=== PATIENT | female | born 1980 | race Caucasian/White ===

== ENCOUNTER 2020-06-18 17:02 | Emergency (ER) | payer OTHER ==
[~2020-06-18] VITALS: Ht 180.3 cm; Wt 136.1 kg
--- OUTSIDE RECORDS SUMMARY | 2020-06-18 18:33 | XMS REPORT | Clinical Summary ---
Author Author [facility] Organization [facility] Address Unknown Phone Unavailable Care Team Providers Care Lather Apprentice Name Role Phone Ra Wilson MD PCP [phone] Allergies Not on File Medications End Date Status Medication Sig Dispensed Refills Start Date Active traZODone (DESYREL) 50 MG Take 25mg 20 tablet 0 tablet twice a day 0 as needed for anxiety 08/28/2019 Discontinued (Stop Taking at Discharge) divalproex (DEPAKOTE) 500 Take 1,000 mg 0 MG EC tablet by mouth nightly. 2 tab of [id number] 08/28/2019 Discontinued (Stop Taking at Discharge) clonAZEPAM (KlonoPIN) 1 Take 1 mg by 0 MG tablet mouth 2 (two) times a day as needed for seizures. 07/31/2019 acetaminophen-codeine Take 1-2 15 tablet 0 06/30 (TYLENOL WITH CODEINE #3) tablets by 9 300-30 mg per mouth every 6 tabletIndications: acute (six) hours pain as needed for moderate pain for up to 5 days .Acute Pain. 08/11/2019 doxycycline (VIBRAMYCIN) Take 1 28 capsule 0 1 100 MG capsule capsule (100 9 mg total) by mouth 2 (two) times a day with meals for 14 days. 08/02/2019 traMADol (ULTRAM) 50 mg Take 1 tablet 20 tablet 0 tabletIndications: acute (50 mg total) 9 pain by mouth every 6 (six) hours as needed for moderate pain for up to 5 days .Acute Pain. 09/27/2019 clonAZEPAM (KlonoPIN) 1 Take 1 tablet 90 tablet 0 MG tablet (1 mg total) 9 by mouth 3 (three) times a day as needed for anxiety for up to 30 days. 09/27/2019 divalproex (DEPAKOTE) 500 Take 1 tablet 60 tablet 0 MG EC tablet (500 mg 9 total) by mouth 2 (two) times a day for 30 days. 01/23/2020 Discontinued (Patient Report ed) clonAZEPAM (KlonoPIN) 1 0 MG tablet 0 01/23/2020 Discontinued (Patient Report ed) divalproex (DEPAKOTE) 500 Take 500 mg 0 09/30 MG EC tablet by mouth 2 0 (two) times a day. 01/23/2020 Discontinued (Patient Report ed) fluvoxaMINE (LUVOX CR) TAKE 1 0 02 100 mg capsule,extended CAPSULE BY 0 release 24hr ER capsule MOUTH ONCE DAILY AT BEDTIME FOR 30 DAYS 01/23/2020 Discontinued gabapentin (NEURONTIN) Take 100 mg 0 02 100 mg capsule by mouth 0 daily. 01/23/2020 Discontinued (Patient Report ed) gabapentin (NEURONTIN) 0 300 mg capsule 0 01/23/2020 Discontinued nystatin (MYCOSTATIN) 0 100,000 unit/gram cream 0 12/29/2019 Discontinued (Reorder) divalproex (Depakote) 500 500mg nightly 52 tablet 1 MG EC tablet for one week, 0 then 1000mg nightly 12/29/2019 Discontinued (Reorder) traZODone (DESYREL) 100 Take 1 tablet 30 tablet 0 MG tablet (100 mg 0 total) by mouth nightly for 30 days. 12/29/2019 Discontinued (Reorder) traZODone (DESYREL) 50 MG Take 20 tablet 0 tablet 0 01/12/2020 clonAZEPAM (KlonoPIN) 0.5 Take 0.5mg 21 tablet 0 MG tablet bid for one 0 week, then daily for one week 01/23/2020 Discontinued (Patient Report ed) divalproex (Depakote) 500 500mg nightly 52 tablet 1 MG EC tablet for one week, 0 then 1000mg nightly 01/23/2020 Discontinued traZODone (DESYREL) 100 Take 1 tablet 30 tablet 0 05/02/202 MG tablet (100 mg 0 total) by mouth nightly for 30 days. 01/23/2020 Discontinued (Reorder) divalproex (Depakote) 250 Take 1 tablet 24 tablet 1 MG EC tablet (250 mg 0 total) by mouth 2 (two) times a day. 01/23/2020 Discontinued (Reorder) traZODone (DESYREL) 50 MG Take 1 tablet 24 tablet 0 tablet (50 mg total) 0 by mouth 2 (two) times a day for 12 days. 02/04/2020 traZODone (DESYREL) 50 MG Take 0.5 12 tablet 0 tablet tablets (25 0 mg total) by mouth 2 (two) times a day for 12 days. Take 25mg as needed for anxiety twice a day 02/22/2020 divalproex (Depakote) 250 Take 1 tablet 60 tablet 0 MG EC tablet (250 mg 0 total) by mouth 2 (two) times a day for 30 days. Active Problems Problem Noted Date Bipolar 1 disorder 12/29/2019 Anxiety 12/29/2019 Chest pain 08/26/2019 Pelvic pain 07/26/2019 Pelvic inflammatory disease (PID) 07/26/2019 Encounters Care Team Description Date Type Specialty Anny Mandujano MD Psychosis, unspecified psychosis type (H CC) (Primary Dx) 01/28/2020 Emergency Emergency Medicine - 01/29/2020 Anny Mandujano MD Depression, unspecified depression type (Primary Dx) 01/23/2020 Emergency Emergency Medicine Sai Antoine MD Major depressive disorder with current a ctive episode, unspecified depression episode severity, unspecified whether recurrent (Primary Dx) 12/29/2019 Emergency Emergency Medicine Brittany Shukla, ARCELIA 08/28/2019 Patient Quality Outreach Shay Bui MD Nguyen, Daniel Nha, MD Chest pain, unspecified type (Primary Dx ) 08/26/2019 Emergency General Internal Me dicine - 08/28/2019 Fletcher Lamas MD Vaginal prolapse (Primary Dx) 08/02/2019 Emergency Emergency Medicine Fletcher Lamas MD Rizvi, Farhan, MD Roberts, Matthew Thomas, DO Pelvic pain (Primary Dx); Intractable pain 07/26/2019 Emergency General Internal Me dicine - 07/28/2019 Shay Bui MD Chest pain, unspecified type (Primary Dx ); Lightheadedness; SOB (shortness of breath) 07/03/2019 Emergency Emergency Medicine - 07/04/2019 after 06/18/2019 Surgical History Surgery Date Site/Laterality Comments SECTION CHOLECYSTECTOMY TUBAL LIGATION Medical History Medical History Date Comments Bipolar 1 disorder (HCC) Anxiety Panic anxiety syndrome Uterine prolapse Depression OCD (obsessive compulsive disorder) OCD (obsessive compulsive disorder) Bipolar 1 disorder (HCC) Panic attack Social History Date Tobacco Use Types Packs/Day Years Used Heavy Tobacco Smoker 1 Smokeless Tobacco: Never Used Drinks/Week oz/Week Comments Alcohol Use "occasionally" Yes Sex Assigned at Date Recorded Not on file Obstetrics History Term Pre Abrt (TAB) (SAB) (Ect) Mult Lvng Comments Grav Para 1 Date GA Total Labor Labor/2nd/3rd Weight Sex Delivery Anes PTL Melody A1 A5 Name Clin Outcome Last Filed Vital Signs Reading Time Taken Comments Vital Sign 120/62 01/29/2020 10:50 AM CDT Blood Pressure 72 01/29/2020 10:50 AM CDT Pulse 36.8 C (98.2 F) 01/29/2020 10:50 AM CDT Temperature 20 01/29/2020 10:50 AM CDT Respiratory Rate 97% 01/29/2020 10:50 AM CDT Oxygen Saturation - - Inhaled Oxygen Concentration 132 kg (290 lb) 01/23/2020 1:43 PM CDT Weight 180.3 cm (5' 11") 01/23/2020 1:43 PM CDT Height 40.45 01/23/2020 1:43 PM CDT Body Mass Index Plan of Treatment Health Maintenance Due Date Last Done Comments CERVICAL CANCER SCREENING 2000 INFLUENZA VACCINE 03/29/2020 Procedures Comments Procedure Name Priority Date/Time Associated Diag nosis URINE CULTURE STAT 01/28/2020 12:02 PM CDT HCG QUALITATIVE, URINE Routine 01/28/2020 SCREEN 11:16 AM CDT URINE DRUGS OF ABUSE STAT 01/28/2020 SCREEN 11:16 AM CDT URINALYSIS SCREEN AND STAT 01/28/2020 MICROSCOPY, WITH REFLEX 11:16 AM CDT TO CULTURE VALPROIC ACID LEVEL Routine 01/28/2020 11:13 AM CDT ESTIMATED GFR STAT 01/28/2020 11:13 AM CDT SALICYLATE LEVEL STAT 01/28/2020 11:13 AM CDT ACETAMINOPHEN LEVEL STAT 01/28/2020 11:13 AM CDT ALCOHOL LEVEL, BLOOD STAT 01/28/2020 11:13 AM CDT CREATINE KINASE, TOTAL STAT 01/28/2020 (CPK) 11:13 AM CDT THYROID STIMULATING STAT 01/28/2020 HORMONE 11:13 AM CDT T4, FREE STAT 01/28/2020 11:13 AM CDT COMPREHENSIVE METABOLIC STAT 01/28/2020 PANEL 11:13 AM CDT HC COMPLETE BLD COUNT STAT 01/28/2020 W/AUTO DIFF 11:13 AM CDT ECG ED PRELIMINARY Routine 01/28/2020 INTERPRETATION 10:43 AM CDT ECG 12-LEAD STAT 01/28/2020 10:36 AM CDT URINE CULTURE STAT 01/23/2020 2:21 PM CDT ESTIMATED GFR STAT 01/23/2020 2:15 PM CDT SALICYLATE LEVEL STAT 01/23/2020 2:15 PM CDT ACETAMINOPHEN LEVEL STAT 01/23/2020 2:15 PM CDT ALCOHOL LEVEL, BLOOD STAT 01/23/2020 2:15 PM CDT CREATINE KINASE, TOTAL STAT 01/23/2020 (CPK) 2:15 PM CDT THYROID STIMULATING STAT 01/23/2020 HORMONE 2:15 PM CDT T4, FREE STAT 01/23/2020 2:15 PM CDT COMPREHENSIVE METABOLIC STAT 01/23/2020 PANEL 2:15 PM CDT HC COMPLETE BLD COUNT STAT 01/23/2020 W/AUTO DIFF 2:15 PM CDT ECG ED PRELIMINARY Routine 01/23/2020 INTERPRETATION 2:00 PM CDT HCG QUALITATIVE, URINE Routine 01/23/2020 SCREEN 1:59 PM CDT URINE DRUGS OF ABUSE STAT 01/23/2020 SCREEN 1:59 PM CDT URINALYSIS SCREEN AND STAT 01/23/2020 MICROSCOPY, WITH REFLEX 1:59 PM CDT TO CULTURE ECG 12-LEAD STAT 01/23/2020 1:57 PM CDT URINE DRUGS OF ABUSE STAT 12/29/2019 SCREEN 9:57 AM CDT URINALYSIS SCREEN AND STAT 12/29/2019 MICROSCOPY, WITH REFLEX 9:57 AM CDT TO CULTURE ESTIMATED GFR STAT 12/29/2019 8:29 AM CDT HCG QUALITATIVE, URINE STAT 12/29/2019 SCREEN 8:29 AM CDT THYROID STIMULATING STAT 12/29/2019 HORMONE 8:29 AM CDT T4, FREE STAT 12/29/2019 8:29 AM CDT SALICYLATE LEVEL STAT 12/29/2019 8:29 AM CDT COMPREHENSIVE METABOLIC STAT 12/29/2019 PANEL 8:29 AM CDT HC COMPLETE BLD COUNT STAT 12/29/2019 W/AUTO DIFF 8:29 AM CDT ALCOHOL LEVEL, BLOOD STAT 12/29/2019 8:29 AM CDT ACETAMINOPHEN LEVEL STAT 12/29/2019 8:29 AM CDT VALPROIC ACID LEVEL STAT 12/29/2019 8:29 AM CDT ECG ED PRELIMINARY Routine 12/29/2019 INTERPRETATION 8:22 AM CDT ECG 12-LEAD STAT 12/29/2019 8:17 AM CDT TROPONIN Timed 08/27/2019 4:19 AM [facility] TROPONIN Timed 08/27/2019 12:06 AM [facility] ECG 12-LEAD STAT 08/26/2019 8:15 PM [facility] XR CHEST 2 VW STAT 08/26/2019 7:55 PM [facility] ECG ED PRELIMINARY Routine 08/26/2019 INTERPRETATION 7:38 PM [facility] ECG ED PRELIMINARY Routine 08/26/2019 INTERPRETATION 7:38 PM [facility] ESTIMATED GFR STAT 08/26/2019 6:54 PM [facility] TROPONIN STAT 08/26/2019 6:54 PM [facility] COMPREHENSIVE METABOLIC STAT 08/26/2019 PANEL 6:54 PM [facility] HC COMPLETE BLD COUNT STAT 08/26/2019 W/AUTO DIFF 6:54 PM [facility]PENTER URINE CULTURE Routine 08/02/2019 8:21 PM [facility] GRAM STAIN Routine 08/02/2019 8:21 PM [facility] HCG QUALITATIVE, URINE Routine 08/02/2019 SCREEN 7:56 PM [facility] URINALYSIS SCREEN AND Routine 08/02/2019 MICROSCOPY, WITH REFLEX 7:56 PM [facility] TO CULTURE ESTIMATED GFR STAT 08/02/2019 4:53 PM [facility] LIPASE LEVEL STAT 08/02/2019 4:53 PM [facility] HEPATIC FUNCTION PANEL STAT 08/02/2019 4:53 PM [facility] BASIC METABOLIC PANEL STAT 08/02/2019 4:53 PM [facility] HC COMPLETE BLD COUNT STAT 08/02/2019 W/AUTO DIFF 4:53 PM [facility] ECG ED PRELIMINARY Routine 08/02/2019 INTERPRETATION 4:21 PM [facility] CHLAMYDIA GONORRHOEAE AND Routine 07/28/2019 TRICHOMONAS PANEL 9:38 AM [facility] ESTIMATED GFR Routine 07/27/2019 5:50 AM [facility] HC COMPLETE BLD COUNT Routine 07/27/2019 W/AUTO DIFF 5:50 AM [facility] BASIC METABOLIC PANEL Routine 07/27/2019 5:50 AM [facility] WET PREP Routine 07/26/2019 10:23 PM [facility] CHLAMYDIA GONORRHOEAE AND Routine 07/26/2019 TRICHOMONAS PANEL 10:17 PM [facility] HEPATITIS B SURFACE STAT 07/26/2019 ANTIGEN 9:55 PM [facility] SYPHILIS TOTAL ANTIBODY Routine 07/26/2019 9:55 PM [facility] HIV 1, 2 ANTIBODY Routine 07/26/2019 9:[address] ABDOMEN PELVIS WO STAT 07/26/2019 CONTRAST 6:11 PM [facility] TRICHOMONAS VAGINALIS BY Routine 07/26/2019 PCR 5:20 PM [facility] CHLAMYDIA TRACHOMATIS BY Routine 07/26/2019 PCR 5:20 PM [facility] NEISSERIA GONORRHOEAE BY Routine 07/26/2019 PCR 5:20 PM [facility] US PELVIC TRANSVAGINAL STAT 07/26/2019 2:00 PM [facility] US PELVIC TRANSABDOMINAL STAT 07/26/2019 2:00 PM [facility] GRAM STAIN Routine 07/26/2019 12:48 PM [facility]PENTER URINE CULTURE Routine 07/26/2019 12:48 PM [facility] HCG QUALITATIVE, URINE Routine 07/26/2019 SCREEN 11:52 AM [facility]PENTER URINALYSIS SCREEN AND Routine 07/26/2019 MICROSCOPY, WITH REFLEX 11:52 AM [facility]PENTER TO CULTURE HEMOGLOBIN A1C Routine 07/26/2019 11:29 AM [facility] LIPID PANEL Routine 07/26/2019 11:29 AM [facility] ESTIMATED GFR STAT 07/26/2019 11:29 AM [facility] LIPASE LEVEL STAT 07/26/2019 11:29 AM [facility] HEPATIC FUNCTION PANEL STAT 07/26/2019 11:29 AM [facility] BASIC METABOLIC PANEL STAT 07/26/2019 11:29 AM [facility] HC COMPLETE BLD COUNT STAT 07/26/2019 W/AUTO DIFF 11:29 AM [facility] TROPONIN Timed 07/03/2019 11:01 PM [facility] XR CHEST 2 VW STAT 07/03/2019 8:41 PM [facility] ECG 12-LEAD STAT 07/03/2019 8:19 PM [facility] ECG ED PRELIMINARY Routine 07/03/2019 INTERPRETATION 7:29 PM [facility] ESTIMATED GFR STAT 07/03/2019 7:17 PM [facility]PENTER B NATRIURETIC PEPTIDE STAT 07/03/2019 7:17 PM [facility] TROPONIN STAT 07/03/2019 7:17 PM [facility] HC COMPLETE BLD COUNT STAT 07/03/2019 W/AUTO DIFF 7:17 PM [facility] COMPREHENSIVE METABOLIC STAT 07/03/2019 PANEL 7:17 PM [facility]STER CARPENTER after 06/18/2019 Results * Urine culture (01/28/2020 12:02 PM CDT) Only the most recent of 4 results within the time period is included. Urine culture Mixed rebeka 10-5 col/cc [place] isolate Comment: HINDUISM Specimen Information HOSPITAL Specimen Source: Urine Specimen Site: Clean catch Specimen Urine Performing Organization Address City/State/ZIP Code P javier Number [facility] DEPARTMENT OF [address] [place] [address] PATHOLOGY AND GENOMIC MEDICINE [address] [address] HOSPITAL * Urinalysis screen and microscopy, with reflex to culture (01/28/2020 11:16 AM CDT) Only the most recent of 5 results within the time period is included. Specimen site Clean catch [facility] Color, UA Red [facility] Appearance, UA Cloudy [facility] Specific 1.029 1.001 - 1.035 [place] gravity, [facility] pH, UA 5.0 5.0 - 8.5 [facility] Protein, UA 2+ (A) Negative [facility] Glucose, UA Negative Negative [facility] Ketones, UA Negative Negative [facility] Bilirubin, UA Negative Negative [facility] Blood, UA Large (A) Negative [facility] Nitrite, UA Negative Negative [facility] Urobilinogen, Negative <2.0 [facility] Leukocyte Negative Negative [place] esterase, [facility] Epithelial Many /HPF [place] cells, [facility] WBC, UA 15 (H) 0 - 5 /HPF [facility] RBC, UA >200 (H) 0 - 5 /HPF [facility] Bacteria, UA None seen None seen [facility] Yeast, UA None seen [facility] Yeast with None seen [place] pseudohyphae, [facility] Specimen Urine Performing Organization Address City/State/ZIP Code P ajvier Number [facility] [place] [address] [place] [address] PATHOLOGY AND GENOMIC MEDICINE [facility] [address] * hCG qualitative, urine screen (01/28/2020 11:16 AM CDT) Only the most recent of 5 results within the time period is included. hCG Negative Negative [place] qualitative, Comment: HINDUISM urine The manufacturers stated [place] sensitivity of HcG test for HOSPITAL serum is >/= 10 mIU/ml and urine is >/= 20mIU/ml. Specimen Urine Performing Organization Address City/[facility] [place] [address] * Urine drugs of abuse screen (01/28/2020 11:16 AM CDT) Only the most recent of 3 results within the time period is included. Amphetamine Positive (A) [place] screen, urine [facility] Barbiturate Negative [place] screen, urine [facility] Benzodiazepine Positive (A) [place] screen, urine [facility] Cocaine screen, Negative [place] urine [facility] Methadone Negative [place] metabolite HINDUISM (EDDP), urine [facility] Opiates screen, Negative [place] urine [facility] Oxycodone Negative [place] screen, urine [facility] Phencyclidine Negative [place] screen, urine [facility] Cannabinoid Positive (A) [place] screen, urine Comment: [facility]INDUISM Drug screen minimum [place] concentration of detectability HOSPITAL Amphetamines 1000 ng/mL Barbiturates 200 ng/mL Benzodiazepines 300 ng/mL Cocaine 300 ng/mL Methadone 300 ng/mL Opiates 300 ng/mL Oxycodone 300 ng/mL Phencyclidine 25 ng/mL Cannabinoids 50 ng/mL Tricyclics 1000 ng/mL Results are from screening tests and should only be used for medical evaluation. Drug testing for legal purposes requires definitive (or confirmatory) testing methods, which are available upon request. Contact the laboratory if definitive testing is required. Specimen Urine Performing Organization Address City/State/ZIP [place] [address] PATHOLOGY AND GENOMIC MEDICINE [address] [place] [address] HOSPITAL * Estimated GFR (01/28/2020 11:13 AM CDT) Only the most recent of 8 results within the time period is included. [facility] Estimated GFR >=90 mL/min/1.73 m2 [place] Comment: [facility] G1 >=90 Normal or high G2 60-89 Mildly decreased G3a 45-59 Mildly to moderately decreased G3b 30-44 Moderately to severely decreased G4 15-29 Severely decreased G5 <15 Kidney failure The eGFR was calculated using the Chronic Kidney Disease Epidemiology Collaboration (CKD-EPI) equation. Interpretation is based on recommendations of the National Kidney Foundation-Kidney Disease Outcomes Quality Initiative (NKF-KDOQI) published in 2014. Specimen Performing Organization Address City/State/ZIP Code P javier Number [facility] [place] [facility] [place] [address] [place] [address] PATHOLOGY AND GENOMIC MEDICINE [facility] [address] * CBC with platelet and differential (01/28/2020 11:13 AM CDT) Only the most recent of 8 results within the time period is included. [facility] WBC 7.5 4.2 - 11.0 k/uL [facility] RBC 4.87 4.04 - 5.86 m/uL [facility] HGB 11.5 11.5 - 15.3 g/dL [facility] HCT 39.2 34.0 - 45.0 % [facility] MCV 80.5 80.0 - 98.0 fL [facility] MCH 23.6 (L) 27.0 - 34.0 pg [facility] MCHC 29.3 (L) 31.5 - 36.5 g/dL [facility] RDW - SD 47.2 37.0 - 51.0 fL [facility] MPV 10.5 (H) 7.4 - 10.4 fL [facility] Platelet count 440 (H) 150 - 400 k/uL [facility] Nucleated RBC 0.00 /100 WBC [facility] Neutrophils 65.9 36.0 - 66.0 % [facility] Lymphocytes 26.5 24.0 - 44.0 % [facility] Monocytes 5.2 0.0 - 6.0 % [facility] Eosinophils 0.8 0.0 - 6.0 % [facility] Basophils 0.8 0.0 - 1.2 % [facility] Immature 0.8 0.0 - 1.0 % [place] granulocytes [facility] Specimen Blood Performing Organization Address [facility] [place] [address] PATHOLOGY AND GENOMIC MEDICINE [address] * Thyroid stimulating hormone (01/28/2020 11:13 AM CDT) Only the most recent of 3 results within the time period is included. TSH 0.62 0.27 - 4.20 uIU/mL [facility] Specimen Blood Performing Organization Address [facility] [place] [address] PATHOLOGY AND GENOMIC MEDICINE [address] * T4, free (01/28/2020 11:13 AM CDT) Only the most recent of 3 results within the time period is included. T4, free 0.79 (L) 0.90 - 1.70 ng/dL [facility] Specimen Blood Performing Organization Address City/[facility] [place] [address] PATHOLOGY AND GENOMIC MEDICINE [address] * Creatine kinase, total (CPK) (01/28/2020 11:13 AM CDT) Only the most recent of 2 results within the time period is included. Creatine kinase 29 26 - 192 U/L [facility] Specimen Blood Performing Organization Address City/[facility] P javier Number [facility] [place] [facility] [address] [place] [address] PATHOLOGY AND GENOMIC MEDICINE [facility] [address] * Alcohol level, blood (01/28/2020 11:13 AM CDT) Only the most recent of 3 results within the time period is included. Alcohol None Detected mg/dL [place] Comment: [facility]INDUISM Normal [place] None Detected [facility] Legal Intoxication in [place] 80 mg/dL (0.08%) Toxic Concentration 200 mg/dL (0.2%) Potentially Fatal 350-500 mg/dL (0.35%-0.5%) Alcohol percent None Detected % [facility] Specimen Blood Performing Organization Address [facility] P javier Number [facility] [address] [place] [address] PATHOLOGY AND GENOMIC MEDICINE [place] [id number] [address] * Acetaminophen level (01/28/2020 11:13 AM CDT) Only the most recent of 3 results within the time period is included. Acetaminophen <15.3 10.0 - 30.0 ug/mL [place] level Comment: HINDUISM Therapeutic [place] 10-30 ug/mL [facility] Possible Toxicity 150-200 ug/mL Probable Toxicity >200 ug/mL Specimen Blood Performing Organization Address City/[facility] P javier Number [facility] [place] [address] [place] [address] PATHOLOGY AND GENOMIC MEDICINE [facility] [address] * Salicylate level (01/28/2020 11:13 AM CDT) Only the most recent of 3 results within the time period is included. Salicylate <0.4 (L) 3.0 - 30.0 mg/dL [place] Comment: HINDUISM Therapeutic Range: [place] 5 - 30 mg/dL HOSPITAL Specimen Blood Performing Organization Address City/[facility]/ZIP Code P javier Number [facility] [place] OF [address] [place] [address] PATHOLOGY AND GENOMIC MEDICINE [place] [address] * Valproic acid level (01/28/2020 11:13 AM CDT) Only the most recent of 2 results within the time period is included. Pathologist [place] [facility] Valproic acid 2.8 (L) 50.0 - 100.0 ug/mL [place] Comment: HINDUISM Therapeutic Range: [place] 50 - 100 ug/mL HOSPITAL Specimen Blood Performing Organization Address City/State/ZIP Code P javier Number [facility] [place] [facility] [address] [place] [address] PATHOLOGY AND GENOMIC MEDICINE [facility] [address] * Comprehensive metabolic panel (01/28/2020 11:13 AM CDT) Only the most recent of 5 results within the time period is included. [facility] Sodium 141 135 - 150 mEq/L [facility] Potassium 3.9 3.5 - 5.0 mEq/L [facility] Chloride 105 98 - 112 mEq/L [facility] CO2 25 24 - 31 mmol/L [facility] Anion gap 11@ANIO 7 - 15 mEq/L [facility] BUN 11 7 - 18 mg/dL [facility] Creatinine 0.70 0.50 - 0.90 mg/dL [facility] Glucose 109 (H) 65 - 100 mg/dL [facility] Calcium 9.5 8.3 - 10.2 mg/dL [facility] Protein 7.3 6.3 - 8.3 g/dL [facility] Albumin 3.5 3.5 - 5.0 g/dL [facility] A/G ratio 0.9 0.7 - 3.8 [facility] Alkaline 58 0 - 104 U/L [place] phosphatase [facility] AST 18 10 - 35 U/L [facility] ALT 20 5 - 50 U/L [facility] Total bilirubin 0.3 0.2 - 1.2 mg/dL [facility] Specimen Blood Performing Organization Address City/[facility] [facility]/ZIP Code P javier Number [facility] [address] [place] [address] PATHOLOGY AND GENOMIC MEDICINE [facility] [address] [place] [address] [facility] * ECG ED Preliminary Interpretation - Not an Order (01/28/2020 10:43 AM CDT) Only the most recent of 7 results within the time period is included. Narrative Performed At Anny Mandujano MD 020 7:06 PM ECG ED Preliminary Interpretation - Not an Order Performed by: Anny Mandujano MD Authorized by: Anny Mandujano MD ECG reviewed by ED Physician in the abs ence of a machine ii coremaker: yes Interpretation: Interpretation: normal Rate: ECG rate: 70 ECG rate assessment: normal Rhythm: Rhythm: sinus rhythm Ectopy: Ectopy: none QRS: QRS axis: Normal QRS intervals: Normal Conduction: Conduction: normal ST segments: ST segments: Normal T waves: T waves: normal * ECG 12 lead (01/28/2020 10:36 AM CDT) Only the most recent of 5 results within the time period is included. Ventricular 70 [facility] MUSE rate Atrial rate 70 [facility] CO interval 150 [facility] QRSD interval 88 [facility] QT interval 408 [facility] QTC interval 440 [facility] P axis 1 12 [facility] M[facility] QRS axis 1 42 [facility] T wave axis 16 [facility] EKG impression Normal sinus rhythm-In [facility] MUSE automated comparison with ECG of 23-JAN-2020 13:57,-No significant change was found- Specimen Narrative Performed At This result has an attachment that is n ot available. Performing Organization Address City/[facility] Code P javier Number [facility] MUSE [address] [place] [address] * Troponin (08/27/2019 4:19 AM MASTER CARPENTER) Only the most recent of 5 results within the time period is included. Troponin <0.006 0.000 - 0.040 ng/mL [place] Comment: HINDUISM In patients suspected of [facility] having a myocardial HOSPITAL infarction, along with all other appropriate clinical measures and actions including ECG and other diagnostics as appropriate, measure Ultra TnI at 0 hrs and at 3 hrs. Myocardial infarction VERY LIKELY The 0 hr TnI level is > 0.10 ng/mL Myocardial infarction LIKELY The 0 hr TnI level is > 0.04 ng/mL and 3 hr level is increased or decreased by at least 0.020 ng/mL Myocardial infarction VERY UNLIKELY Both the 0 hr and 3 hr TnI levels <= 0.04 ng/mL(within normal limits) OR 0 hr is > 0.04 ng/mL and 3 hr is increased OR decreased by less than 0.020 ng/mL Specimen Plasma specimen Performing Organization Address City/State/ZIP Code P javier Number [facility] [address] [place] [address] PATHOLOGY AND GENOMIC MEDICINE [facility] [address] * XR Chest 2 Vw (08/26/2019 7:55 PM MASTER CARPENTER) Only the most recent of 2 results within the time period is included. Specimen Narrative Performed At EXAMINATION: XR CHEST 2 VW HM [facility] CLINICAL HISTORY: [address] pain normal ekg COMPARISON: July 03, 2019 IMPRESSION: The cardiomediastinal silhouette is not enlarged The lungs are clear The osseous structures are within angel l limits. . [facility]-[id number] Procedure Note Hm Interface, Radiology Results Incoming - 08/26/2019 7:59 PM MASTER CARPENTER EXAMINATION: XR CHEST 2 VW CLINICAL HISTORY: 38 years Female Chest pain normal ekg COMPARISON: July 03, 2019 IMPRESSION: The cardiomediastinal silhouette is not enlarged The lungs are clear The osseous structures are within normal limits. . [facility]-[id number] Performing Organization Address City/[facility]/ZIP Code P javier Number [facility] [address] [place] [address] * Gram stain (08/02/2019 8:21 PM MASTER CARPENTER) Only the most recent of 2 results within the time period is included. Gram stain No WBC's or organisms seen. [place] result Comment: HINDUISM Specimen Information HOSPITAL Specimen Source: Urine Specimen Site: Clean catch Specimen Urine Performing Organization Address City/[facility]/ZIP Code P javier Number [facility] DEPARTMENT OF [address] [place] [address] PATHOLOGY [place] [address] HOSPITAL * Lipase level (08/02/2019 4:53 PM MASTER CARPENTER) Only the most recent of 2 results within the time period is included. Lipase 30 13 - 60 U/L [facility] Specimen Plasma specimen Performing Organization Address City/[facility] [place] [address] PATHOLOGY AND GENOMIC MEDICINE [address] * Hepatic function panel (08/02/2019 4:53 PM MASTER CARPENTER) Only the most recent of 2 results within the time period is included. Albumin 3.5 3.5 - 5.0 g/dL [facility] Total bilirubin <0.3 0.2 - 1.2 mg/dL [facility] Bilirubin <0.2 0.0 - 0.4 mg/dL [place] direct [facility] Alkaline 81 0 - 104 U/L [place] phosphatase [facility] Protein 7.3 6.3 - 8.3 g/dL [facility] ALT 30 5 - 50 U/L [facility] AST 22 10 - 35 U/L [facility] Specimen Plasma specimen Performing Organization Address City/[facility]/ZIP [facility] P javier Number [facility] [address] [place] [address] PATHOLOGY AND GENOMIC MEDICINE [place] [address] * Basic metabolic panel (08/02/2019 4:53 PM MASTER CARPENTER) Only the most recent of 3 results within the time period is included. Sodium 142 135 - 150 mEq/L [facility] Potassium 3.8 3.5 - 5.0 mEq/L [facility] Chloride 105 98 - 112 mEq/L [facility] CO2 25 24 - 31 mmol/L [facility] Anion gap 12@ANIO 7 - 15 mEq/L [facility] BUN 11 7 - 18 mg/dL [facility] Creatinine 0.90 0.50 - 0.90 mg/dL [facility] Glucose 104 (H) 65 - 100 mg/dL [facility] Calcium 9.4 8.3 - 10.2 mg/dL [facility] Specimen Plasma specimen Performing Organization Address City/State/ZIP Code P javier Number [facility] [address] [place] [address] PATHOLOGY AND GENOMIC MEDICINE [address] * Chlamydia gonorrhoeae and trichomonas panel (07/28/2019 9:38 AM MASTER CARPENTER) Only the most recent of 2 results within the time period is included. Pathologist [facility] Chlamydia Negative for Chlamydia [place] trachomatis by trachomatis. [facility]ISM PCR Comment: HOSPITAL Specimen Information Specimen Source: Urine Specimen Site: Midstream Neisseria Negative for Neisseria [place] gonorrhoeae by gonorrhoeae. [facility] Trichomonas Negative for Trichomonas [place] vaginalis by vaginalis. [facility] Specimen Urine - Midstream Performing Organization Address City/State/ZIP Code P javier Number [facility] DEPARTMENT OF [address] [place] [address] PATHOLOGY AND GENOMIC MEDICINE [address] * Wet prep (07/26/2019 10:23 PM MASTER CARPENTER) Pathologist [facility] Wet prep result No Trichomonas vaginalis seen [place] No WBC's seen [place] No Clue cells seen [facility] Comment: Specimen Information Specimen Source: Vaginal Specimen Site: Other- Detailed Description Required Specimen Vaginal - Other- Detailed Description Required Performing Organization Address City/[facility]/ZIP Code P javier Number [facility] [address] [place] [address] PATHOLOGY AND GENOMIC MEDICINE [facility] [address] * Syphilis total antibody (07/26/2019 9:55 PM MASTER CARPENTER) Pathologist [facility] Syphilis total Non-reactiveComment: No Non-reactive [place] antibody serological evidence of [facility] syphilis infection. HOSPITAL Specimen Blood Performing Organization Address City/[facility]/ZIP Code P javier Number [facility] DEPARTMENT OF [address] [place] [id number] [place] [address] * HIV 1, 2 antibody (07/26/2019 9:55 PM MASTER CARPENTER) [facility] HIV 1, 2 Non-Reactive Non-reactive [place] antibody Comment: HINDUISM Starting from November 25 2015, [facility] 4th generation HIV screening HOSPITAL and confirmation assays are in use at [facility], consistent with the CDC-recommended algorithm. The screening test detects antibodies to HIV-1, HIV-2 and the p24 antigen. Positive screening results will be automatically reflexed to a HIV-1/HIV-2 differentiation assay. Indeterminant HIV-1 results will be further automatically reflexed to a nucleic acid test for detection of acute infection. Western blot will no longer be performed as a confirmation test. For a quick reference guide on the testing algorithm, please refer to: http://stacks.cdc.gov/view/cdc /53785. Specimen Blood Performing Organization Address City/[facility]/ZIP Code P javier Number [facility] [address] [place] [phone] PATHOLOGY AND GENOMIC MEDICINE [facility] [address] * Hepatitis B surface antigen (07/26/2019 9:55 PM MASTER CARPENTER) [facility] Hepatitis B Non-reactive Non-reactive [place] surface Ag [facility] Specimen Blood Performing Organization Address City/State/ZIP Code P javier Number [facility] [address] [place] [address] PATHOLOGY AND GENOMIC MEDICINE [facility] [address] [place] [address] HOSPITAL * CT Abdomen Pelvis Wo Contrast (07/26/2019 6:11 PM MASTER CARPENTER) Specimen Narrative Performed At EXAMINATION: CT ABDOMEN PELVIS WO CONTRAST RADI ANT CLINICAL HISTORY: pelvic pain TECHNIQUE: Multiple axial images of the abdomen and pelvis were obtained without intravenous administration of iodinated contrast. Sagittal and coronal computerized reformatted images were al so obtained. The lack of intravenous contrast reduces the sensitivity of detecting solid organ di sease. CT imaging was performed with iterative reconstruction techniques and/or automated exposure control to reduce ra diation dose. COMPARISON: None. FINDINGS: 1.There is mild focal fatty infiltratio n of the liver adjacent to the falciform ligament. 2.The gallbladder is absent. 3.The spleen, pancreas, and adrenals ar e normal. 4.The kidneys, ureters and urinary blad ilene are normal, there is no hydronephrosis or nephrolithiasis. A pu nctate phlebolith adjacent to the right ureter (image 158) and punctate left pe lvic phleboliths (image 160, 179) are noted. 5.Uterus and adnexa are unremarkable, s ee accompanying pelvic ultrasound. 6.The stomach, small bowel, colon, and appendix are normal. 7.No fluid collection, inflammatory donald nge, lymphadenopathy is seen. 8.There is no skeletal abnormality. IMPRESSION: No acute abnormality. No clear explanat ion for pelvic pain on this examination. [facility]-[id number] Procedure Note Interface, Radiology Results Incoming - 07/26/2019 6:23 PM MASTER CARPENTER EXAMINATION: CT ABDOMEN PELVIS WO CONTRAST CLINICAL HISTORY: pelvic pain TECHNIQUE: Multiple axial images of the abdomen and pelvis were obtained without intravenous administration of iodinated contrast. Sagittal and coronal computerized reformatted images were also obtained. The lack of intravenous contrast reduces the sensitivity of detecting solid organ disease. CT imaging was performed with iterative reconstruction techniques and/or automated exposure control to reduce radiation dose. COMPARISON: None. FINDINGS: 1.There is mild focal fatty infiltration of the liver adjacent to the falciform ligament. 2.The gallbladder is absent. 3.The spleen, pancreas, and adrenals are normal. 4.The kidneys, ureters and urinary bladd er are normal, there is no hydronephrosis or nephrolithiasis. A punctate phlebolith adjacent to the right ureter (image 158) and punctate left pelvic phleboliths (image 160, 179) are noted. 5.Uterus and adnexa are unremarkable, se e accompanying pelvic ultrasound. 6.The stomach, small bowel, colon, and a ppendix are normal. 7.No fluid collection, inflammatory mcbride ge, lymphadenopathy is seen. 8.There is no skeletal abnormality. IMPRESSION: No acute abnormality. No clear explanation for pelvic pain on this examination. [facility]-[id number] Performing Organization Address City/[facility]/ZIP [place] [address] * Chlamydia trachomatis by PCR (07/26/2019 5:20 PM MASTER CARPENTER) Chlamydia Negative for Chlamydia [facility] trachomatis by trachomatis. [facility] PCR Comment: HOSPITAL Specimen Information Specimen Source: Urine Specimen Site: Urine, clean catch Specimen Urine - Urine, clean catch Performing Organization Address [facility] P javier Number [facility] [place] [address] PATHOLOGY AND GENOMIC MEDICINE [place] [address] HOSPITAL * Neisseria gonorrhoeae by PCR (07/26/2019 5:20 PM MASTER CARPENTER) Neisseria Negative for Neisseria [place] gonorrhoeae by gonorrhoeae. [facility] PCR Comment: HOSPITAL Specimen Information Specimen Source: Urine Specimen Site: Urine, clean catch Specimen Urine - Urine, clean catch Performing Organization Address [facility] P javier Number [facility] [place] [address] PATHOLOGY AND GENOMIC MEDICINE [address] * Trichomonas vaginalis by PCR (07/26/2019 5:20 PM MASTER CARPENTER) Trichomonas Negative for Trichomonas [place] vaginalis by vaginalis. [facility] PCR Comment: HOSPITAL Specimen Information Specimen Source: Urine Specimen Site: Urine, clean catch Specimen Urine - Urine, clean catch Performing Organization Address [facility] P javier Number [facility] [place] [address] PATHOLOGY AND GENOMIC MEDICINE [place] [address] HOSPITAL * US Pelvic Transabdominal (07/26/2019 2:00 PM MASTER CARPENTER) Specimen Narrative Performed At EXAMINATION: US PELVIC TRANSVAGINAL, US PELVIC SINGH SABDOMINAL HM [facility] CLINICAL HISTORY: pelvic pain COMPARISON: None. TECHNIQUE:Transabdominal and endovagina l sonographic images of the pelvis were obtained. Grayscale, color Doppler, and spectral waveform analysis of the ovarian vessels was performed. FINDINGS: The uterus measures 7.5 x 5.1 x 5.9 cm. The endometrial stripe measures 0.98 cm . The right ovary measures 3.06 cm x 1.89 cm x 1.81 cm . Normal Doppler flow was present. The left ovary measures 2.63 cm x 1.14 cm x 1.14 cm. Normal Doppler flow was present. TRANSVAGINAL IMAGING: The uterine endometrium is not enlarged . There is a 2.6 cm uterine fibroid seen posteriorly. The left and right ovaries are identifi ed. Blood flow is present to both ovaries. There are no adnexal masses pr esent. IMPRESSION: 1. The uterine endometrium is not enlar ged. 2. There is a 2.6 cm uterine fibroid pr esent. 3. The ovaries are unremarkable. There is no evidence of any torsion. 4. There are no adnexal masses. [id number] Procedure Note Interface, Radiology Results Incoming - 07/26/2019 2:10 PM MASTER CARPENTER EXAMINATION: US PELVIC TRANSVAGINAL, US PELVIC TRANSABDOMINAL CLINICAL HISTORY: pelvic pain COMPARISON: None. TECHNIQUE:Transabdominal and endovaginal sonographic images of the pelvis were obtained. Grayscale, color Doppler, and spectral waveform analysis of the ovarian vessels was performed. FINDINGS: The uterus measures 7.5 x 5.1 x 5.9 cm. The endometrial stripe measures 0.98 cm. The right ovary measures 3.06 cm x 1.89 cm x 1.81 cm . Normal Doppler flow was present. The left ovary measures 2.63 cm x 1.14 cm x 1.14 cm. Normal Doppler flow was present. TRANSVAGINAL IMAGING: The uterine endometrium is not enlarged. There is a 2.6 cm uterine fibroid seen posteriorly. The left and right ovaries are identified. Blood flow is present to both ovaries. There are no adnexal masses present. IMPRESSION: 1. The uterine endometrium is not enlarg ed. 2. There is a 2.6 cm uterine fibroid pre sent. 3. The ovaries are unremarkable. There i s no evidence of any torsion. 4. There are no adnexal masses. [id number] Performing Organization Address City/State/ZIP Code P javier Number [facility] [address] [place] [address] * US Pelvic Transvaginal (07/26/2019 2:00 PM MASTER CARPENTER) Specimen Narrative Performed At EXAMINATION: US PELVIC TRANSVAGINAL, US PELVIC SINGH SABDOMINAL [facility] CLINICAL HISTORY: pelvic pain COMPARISON: None. TECHNIQUE:Transabdominal and endovagina l sonographic images of the pelvis were obtained. Grayscale, color Doppler, and spectral waveform analysis of the ovarian vessels was performed. FINDINGS: The uterus measures 7.5 x 5.1 x 5.9 cm. The endometrial stripe measures 0.98 cm . The right ovary measures 3.06 cm x 1.89 cm x 1.81 cm . Normal Doppler flow was present. The left ovary measures 2.63 cm x 1.14 cm x 1.14 cm. Normal Doppler flow was present. TRANSVAGINAL IMAGING: The uterine endometrium is not enlarged . There is a 2.6 cm uterine fibroid seen posteriorly. The left and right ovaries are identifi ed. Blood flow is present to both ovaries. There are no adnexal masses pr esent. IMPRESSION: 1. The uterine endometrium is not enlar ged. 2. There is a 2.6 cm uterine fibroid pr esent. 3. The ovaries are unremarkable. There is no evidence of any torsion. 4. There are no adnexal masses. [id number] Procedure Note Hm Interface, Radiology Results Incoming - 07/26/2019 2:10 PM MASTER CARPENTER EXAMINATION: US PELVIC TRANSVAGINAL, US PELVIC TRANSABDOMINAL CLINICAL HISTORY: pelvic pain COMPARISON: None. TECHNIQUE:Transabdominal and endovaginal sonographic images of the pelvis were obtained. Grayscale, color Doppler, and spectral waveform analysis of the ovarian vessels was performed. FINDINGS: The uterus measures 7.5 x 5.1 x 5.9 cm. The endometrial stripe measures 0.98 cm. The right ovary measures 3.06 cm x 1.89 cm x 1.81 cm . Normal Doppler flow was present. The left ovary measures 2.63 cm x 1.14 cm x 1.14 cm. Normal Doppler flow was present. TRANSVAGINAL IMAGING: The uterine endometrium is not enlarged. There is a 2.6 cm uterine fibroid seen posteriorly. The left and right ovaries are identified. Blood flow is present to both ovaries. There are no adnexal masses present. IMPRESSION: 1. The uterine endometrium is not enlarg ed. 2. There is a 2.6 cm uterine fibroid pre sent. 3. The ovaries are unremarkable. There i s no evidence of any torsion. 4. There are no adnexal masses. [id number] Performing Organization Address City/State/ZIP Code P javier Number [facility] [address] [place] [address] * Hemoglobin A1c (07/26/2019 11:29 AM MASTER CARPENTER) Hemoglobin A1C 5.7 (H) 4.0 - 5.6 % [place] Comment: HINDUISM HbA1c cutoffs for diagnosing [facility] diabetes: HOSPITAL 4.0% - 5.6% = normal 5.7% - 6.4% = increased risk for diabetes (prediabetes)9 >=6.5% = diabetes9 Goals for glycemic control (ADA 2016) < 7.0% Target for non adults with diabetes. More or less stringent targets may be appropriate for individual patients. <7.5% Target for Children and adolescents with type 1 diabetes. Specimen Blood Narrative Performed At pt sent to [id number]. printed to lab. 07/26/2019 18:39 cc7 [facility]Y AND GENOMIC MEDICINE Performing Organization Address City/State/ZIP [facility] P javier Number [facility] [address] [place] [phone] PATHOLOGY AND GENOMIC MEDICINE [place] [address] [place] [address] HOSPITAL * Lipid panel (07/26/2019 11:29 AM MASTER CARPENTER) Cholesterol 202 (H) 0 - 199 mg/dL [facility] Triglycerides 263 (H) 0 - 149 mg/dL [facility] HDL cholesterol 29 (L) 40 - 9,999 mg/dL [facility] LDL cholesterol 148 (H)Comment: Result 0 - 99 mg/dL [place] obtained by direct LDL [facility] measurement [facility] Lipid panel See below [place] interpretation Comment: HINDUISM Total Cholesterol (mg/dL) [facility] LDL Cholesterol HOSPITAL (mg/dL) <200 Desirable <100 Optimal 200-239 Borderline-high 100-129 Near or above optimal >=240 High 130-159 Borderline-high 160-189 High >=190 Very high HDL Cholesterol (mg/dL) Triglycerides (mg/dL) <40 Low <150 Normal >=60 High 150-199 Borderline-high 200-499 High >=500 Very high Risk Catergories that modify LDL goals. Risk Catergories LDL goal (mg/dL) CHD and CHD risk equivalent <100 (10-year risk >20%) Multiple (2+) risk factors <130 (10-year risk =<20%) 0-1 risk factors <160 (<10-year risk) Defining levels of lipids in metabolic syndrome Triglycerides >=150 mg/dL HDL Cholesterol Men <40 mg/dL Women <50 mg/dL Non-HDL cholesterol is a second target for therapy in persons with high triglycerides (>=200 mg/dL) Specimen Plasma specimen Narrative Performed At pt sent to [id number]. printed to lab. 07/26/2019 18:39 cc7 [facility]Y AND GENOMIC MEDICINE Performing Organization Address City/[facility] P javier Number [address] [place] [address] PATHOLOGY AND GENOMIC MEDICINE [address] [place] * B natriuretic peptide (07/03/2019 7:17 PM MASTER CARPENTER) BNP 6 0 - 100 pg/mL [facility] Specimen Blood Performing Organization Address City/[facility] P javier Number [address] [place] [address] PATHOLOGY AND GENOMIC MEDICINE [address] [place] after 06/18/2019 Insurance Type Payer Benefit Subscriber ID Effective Phone Address Plan / Dates Group HMO [employer] MEDICAID [employer] [id number] [id number] COMM STAR+ resent [facility] [id number] amily (Home) [place] [address] Advance Directives For more information, please contact: [phone] 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
--- OUTSIDE RECORDS SUMMARY | 2020-06-18 18:33 | XMS REPORT | Clinical Summary ---
Author Author [facility] Address Unknown Phone Unavailable Care Team Providers Care Furniture Repairer Name Role Phone Sharpwang PCP Allergies No Known Allergies Medications End Date Status Medication Sig Dispensed Refills Start Date Active traZODone (DESYREL) 50 MG Take 50 mg by 0 tablet mouth nightly. Active hydrOXYzine (ATARAX) 50 Take 50 mg by 0 MG tablet mouth 3 (three) times daily as needed for Itching. Active Problems Problem Noted Date Precordial pain 01/16/2017 Suicidal ideations 01/16/2017 Depression 01/16/2017 Bipolar depression 01/16/2017 Anxiety 01/16/2017 Social History Date Tobacco Use Types Packs/Day Years Used Current Every Day Smoker Cigarettes 1 19 Tobacco Cessation: Counseling Given: Yes Drinks/Week oz/Week Comments Alcohol Use No Sex Assigned at Date Recorded Not on file Last Filed Vital Signs Not on file Plan of Treatment Not on file Results Not on fileafter 06/18/2019 Advance Directives For more information, please contact: [phone] Date Inactivated Comments Code Status Date Activated 01/19/2017 12:24 PM Full Code 01/16/2017 4:24 PM This code status was determined by: Patient
--- OUTSIDE RECORDS SUMMARY | 2020-06-18 18:34 | XMS REPORT | Continuity of Care Document ---
Author Author [facility] t Organization [facility] Address [address] [place] [address] Phone Unavailable Care Team Providers Care Talent Management Manager Name Role Phone NO, PCP PCP Unavailable GEORGES NAJERA M.D. Attphys Unavailable Ester Kennedy Attphys Unavailable Nazia FU, Barry Mccormick Attphys [phone] Mervin FU, José Miguel Gibbs Attphys [phone] Flores, Britney Attphys Unavailable Mima ALFORD Attphys Unavailable Hao FU, Ti Day Attphys Gayla FU, [facility] Luis Attphys Gayla PANIAGUA, Brittany Attphys Unavailable Cydney FU, Chadd Bynum Attphys [phone] She FU, Mau Attphys Jose Luis Boland DO Attphys [phone] ELOISA WAHL Attphys Unavailable LUIS VOGEL Admphys Unavailable RACHEL BOLAND Admphys Unavailable MAURA THAO Admphys Unavailable Payers Payer Name Policy Type Policy Number Effective Date Expiration Date S zoie [facility] MEDICAIDUNITED COMM STAR+ [id number] 2018-PresentO [id number] 2019 00:00:00 [facility] [id number] 2019 00:00 :[address] [facility] Problems Condition Name Condition Details Condition Category Status Onset Date Resolution Date Last Treatment Date Treating Clinician Comments Source Bipolar 1 disorder Bipolar 1 disorder Disease Active 2019-12-29 00:00:0 0 Earleton Uatsdin Anxiety Anxiety Disease Active 2019-12-29 00:00:00 Earleton Uatsdin Chest pain Chest pain Disease Active 2019-08-26 00:00:00 Ahmadi Uatsdin Pelvic pain Pelvic pain Disease Active 2019-07-26 00:00:00 Ahmadi Uatsdin Pelvic inflammatory disease (PID) Pelvic inflammatory disease (P ID) Disease Active 2019-07-26 00:00:00 [place] brayden Uatsdin Precordial pain Precordial pain Disease Active 2017-01-16 00:00:00 [facility] Suicidal ideations Suicidal ideations Disease Active 2017-01-16 00:00:0 0 [facility] Depression Depression Disease Active 2017-01-16 00:00:00 [facility] Bipolar depression Bipolar depression Disease Active 2017-01-16 00:00:0 0 [facility] Anxiety Anxiety Disease Active 2017-01-16 00:00:00 [facility] History of Anxiety History of Anxiety Problem Resolved [facility] History of bipolar disorder History of bipolar disorder Problem Resolved [facility] ns History of panic disorder History of panic disorder Problem Resolved [facility] History of suicide attempt History of suicide attempt Problem Resolved [facility] Yeast infection Yeast infection Problem Active [facility] demise, greater than 22 weeks, exam F etal demise, greater than 22 weeks, exam Problem Active [facility] Morbid obesity Morbid obesity Problem Active [facility] Hyperglycemia Hyperglycemia Problem Active [facility] Hyperthyroidism Hyperthyroidism Problem Active [facility] PVC (premature ventricular contraction) PVC (premature ventr icular contraction) Problem Active [facility] Chest pain Chest pain [facility] Dizziness Dizziness Problem Active [facility] Fatigue Fatigue Problem Active [facility] Dyspnea Dyspnea Problem Active [facility] Allergies, Adverse Reactions, Alerts This patient has no known allergies or adverse reactions. Family History Family Member Diagnosis Comments Start Date Stop Date Source Father Family history of diabetes mellitus [facility] Father Family history of myocardial infarction [facility] Father Family history of hypertension [facility] Sister Family history of diabetes mellitus [facility] Brother Family history of diabetes mellitus [facility] Social History Social Habit Start Date Stop Date Quantity Comments Source History of tobacco use Cigarette Smoker [facility] Sex Assigned At Sonia hussein Uatsdin Cigarettes smoked current (pack per day) - Reported 00:00:00 2020-01-28 00:00:00 Galdino Meredith Tobacco use and exposure 2020-01-28 00:00:00 2020-01-28 00:00:00 Pascualoswaldo r used Galdino Meredith Alcohol intake 2020-01-28 00:00:00 2020-01-28 00:00:00 Current drinker of alcohol (finding) Galdino Meredith Alcohol Comment 2019-12-29 00:00:00 2019-12-29 00:00:00 "occasionally " Galdino Meredith Cigarette pack-years 2017-01-16 00:00:00 2017-01-16 00:00:00 [facility] Smoking Status Start Date Stop Date Source Heavy tobacco smoker 2020-01-28 00:00:00 Galdino Meredith Current every day smoker 2017-01-16 00:00:00 [facility] Medications Ordered Medication Name Filled Medication Name Start Date Stop Da te Current Medication? Ordering Clinician Indication Dosage Frequency Signature (SIG) Comments Components Source Nitroglycerin 0.4 MG Sublingual Tablet Sublingual Nitr oglycerin 0.4 MG Sublingual Tablet Sublingual 2020-05-26 00:00:[address] 1 TABLET UNDER THE TONGUE EVERY 5 MINUTES FOR UP TO 3 DOSES NEEDED FOR CHEST PAIN.CALL 911 IF PAIN PERSISTS. [facility] divalproex (Depakote) 250 MG EC tablet 2019-12-29 7 00:00:00 2020-02-22 23:59:00 No 250mg Q.5D Take 1 tablet (250 mg total) by mouth 2 (two) times a day for 30 days. Galdino Meredith traZODone (DESYREL) 50 MG tablet 2020-01-23 00:00:00 2020-01 23:59:00 No 25mg Q.5D Take 0.5 tablets (25 mg total) by mouth 2 (two) times a day for 12 days. Take 25mg as needed for anxiety twice a day Galdino Meredith divalproex (Depakote) 250 MG EC tablet 2019-12-29 7 00:00:00 2020-01-23 00:00:00 No 250mg Q.5D Take 1 tablet (250 mg total) by mouth 2 (two) times a day. Galdino Uatsdin traZODone (DESYREL) 50 MG tablet 2020-01-23 00:00:00 2019-12 00:00:00 No 50mg Q.5D Take 1 tablet (50 mg total) by mouth 2 (two) times a day for 12 days. Galdino Uatsdin traZODone (DESYREL) 50 MG tablet 2019-12-29 00:00:00 Yes Take 25mg twice a day as needed for anxiety [place] divalproex (Depakote) 500 MG EC tablet 2 00:00:2020-01-23 00:00:00 No 500mg nightly for one week, then 1000mg nightly Galdino Velasquezist traZODone (DESYREL) 100 MG tablet 2019-12-29 00:00:00 2019 00:00:00 No 100mg QD Take 1 tablet (100 mg total) by mouth ni ghtly for 30 days. Galdino Velasquezist clonAZEPAM (KlonoPIN) 0.5 MG tablet 2019-12-29 00:00:0 0 2020-01-12 23:59:00 No Take 0.5mg bid for one week, then daily for one week Galdino Velasquezist divalproex (Depakote) 500 MG EC tablet 2 00:00:00 2019-12-29 00:00:00 No 500mg nightly for one week, then 1000mg nightly Galdino Velasquezist traZODone (DESYREL) 100 MG tablet 2019-12-29 00:00:00 2019 00:00:00 No 100mg QD Take 1 tablet (100 mg total) by mouth ni ghtly for 30 days. Galdino Velasquezist traZODone (DESYREL) 50 MG tablet 2019-12-29 00:00:00 2019-12 00:00:00 No Take Galdino hoyos clonAZEPAM (KlonoPIN) 1 MG tablet 2019-12-10 00:00:00 2019 00:00:00 No Galdino sharif fluvoxaMINE (LUVOX CR) 100 mg capsule,extended release 24hr ER capsule 2019-11-09 00:00:00 2020-01-23 00:00:00 No TAKE 1 CAPSULE BY MOUTH ONCE DAILY AT BEDTIME FOR 30 DAYS Galdino keen divalproex (DEPAKOTE) 500 MG EC tablet 2019-09-30 1 00:00:00 2020-01-23 00:00:00 No 500mg Q.5D Take 500 mg by mouth 2 (two) carlitos es a day. Galdino Meredith gabapentin (NEURONTIN) 100 mg capsule 2019-10-12 00:00 :00 2020-01-23 00:00:00 No 100mg QD Take 100 mg by mouth daily. Galdino Meredith gabapentin (NEURONTIN) 300 mg capsule 2019-10-04 00:00 :00 2020-01-23 00:00:00 No Galdino bermeo nystatin (MYCOSTATIN) 100,000 unit/gram cream 20 18-10-05 00:00:00 2020-01-23 00:00:00 No Galdino Meredith divalproex (DEPAKOTE) 500 MG EC tablet 2019-07-31 1 10:05:41 2019-08-28 00:00:00 No 1000mg QD Take 1,000 mg by mouth nightly. 2 tab of 188=[id number] Galdino Meredith clonAZEPAM (KlonoPIN) 1 MG tablet 2019-08-28 10:05:41 2018 00:00:00 No 1mg Q.5D Take 1 mg by mouth 2 (two) times a day a s needed for seizures. Galdino Meredith clonAZEPAM (KlonoPIN) 1 MG tablet 2019-08-28 00:00:00 2019 23:59:00 No 1mg Q.[id number] Take 1 ta blet (1 mg total) by mouth 3 (three) times a day as needed for anxiety for up to 30 days. Galdino Meredith divalproex (DEPAKOTE) 500 MG EC tablet 2019-07-31 1 00:00:00 2019-09-27 23:59:00 No 500mg Q.5D Take 1 tablet (500 mg total) by mouth 2 (two) times a day for 30 days. Galdino Meredith doxycycline (VIBRAMYCIN) 100 MG capsule 00:00:00 2019-08-11 23:59:00 No 100mg Q.5D Take 1 capsule (100 mg total) by mouth 2 (two) times a day with meals for 14 days. Galdino Cobb thodi traMADol (ULTRAM) 50 mg tablet 2019-07-28 00:00:00 5 23:59:00 No acute pain 50mg Q6H Take 1 tablet (50 mg total) by mouth every 6 (six) hours as needed for moderate pain for up to 5 days .Acute Pain. Galdino Meredith acetaminophen-codeine (TYLENOL WITH CODEINE #3) 300-30 mg pe r tablet 2019-07-26 00:00:00 2019-07-31 23:59:00 No acute pain 1{tbl} Q6H Take 1-2 tablets by mouth every 6 (six) hours as needed for moderate pain for up to 5 days .Acute Pain. Ahmadi Uatsdin traZODone (DESYREL) 50 MG tablet 2017-01-19 10:24:23 Yes 50mg QD Take 50 mg by mouth nightly. [facility] hydrOXYzine (ATARAX) 50 MG tablet 2017-01-19 10:24:23 Yes 50mg Take 50 mg by mouth 3 (three) times daily as needed for Itching. [facility] Depakote ER 500 MG Oral Tablet Extended Release 24 Sonia r Depakote ER 500 MG Oral Tablet Extended Release 24 Hour Yes [facility] Venlafaxine HCl ER 37.5 MG Oral Capsule Extended Relea se 24 Hour Venlafaxine HCl ER 37.5 MG Oral Capsule Extended Release 24 Hour Yes QD TAKE 1 CAPSULE ONCE DAILY WITH FOOD. [facility] clonazePAM 0.5 MG Oral Tablet clonazePAM 0.5 MG Oral Tablet Yes Q12H TAKE 1 TABLET EVERY 12 HOURS NEEDED. [facility] Iron TABS Iron TABS Yes [facility] Vitamin C TABS Vitamin C TABS Yes [facility] Immunizations Ordered Immunization Name Filled Immunization Name Date Status Comments Source Influenza 2015-08-01 12:00:00 Completed [facility] Tdap (Adacel) 2015-08-01 11:59:00 Completed [facility] Vital Signs Vital Name Observation Time Observation Value Comments Source Systolic blood pressure 2020-05-26 09:54:00 134 mm[Hg] Loca tion: RUE; Position: Sitting [facility] Diastolic blood pressure 2020-05-26 09:54:00 93 mm[Hg] Loc ation: RUE; Position: Sitting [facility] Body height 2020-05-26 09:54:00 71 [in_us] [facility] Weight 2020-05-26 09:54:00 264 [lb_av] [facility] Body mass index (BMI) [Ratio] 2020-05-26 09:54:00 36.82 kg/m2 [facility] Heart Rate 2020-05-26 09:54:00 74 /min [facility] Systolic blood pressure 2020-01-29 10:50:00 120 mm[Hg] Earleton Uatsdin Diastolic blood pressure 2020-01-29 10:50:00 62 mm[Hg] [facility] Heart rate 2020-01-29 10:50:00 72 /min [facility] Body temperature 2020-01-29 10:50:00 36.78 Kaelyn [place] U[place] Respiratory rate 2020-01-29 10:50:00 20 /min [place] Oxygen saturation in Arterial blood by Pulse oximetry 01-28 10:50:00 97 /min [facility] Body height 2020-01-23 13:43:00 180.3 cm [facility] Body weight 2020-01-23 13:43:00 131.543 kg [facility] BMI 2020-01-23 13:43:00 40.45 kg/m2 Galdino Meredith Procedures Procedure Date / Time Performed Performing Clinician Sour e URINE CULTURE 2020-01-28 12:02:00 Anny Gentile URINALYSIS SCREEN AND MICROSCOPY, WITH REFLEX TO CULTURE 11:16:00 Anny Gentile Earleton Uatsdin URINE DRUGS OF ABUSE SCREEN 2020-01-28 11:16:00 Jalen Gentile [place] Uatsdin HCG QUALITATIVE, URINE SCREEN 2020-01-28 11:16:00 Gladys Gentile [place] Uatsdin HC COMPLETE BLD COUNT W/AUTO DIFF 2020-01-28 11:13:00 Tj Gentile [facility] COMPREHENSIVE METABOLIC PANEL 2020-01-28 11:13:00 Gladys Gentilemelanie Reddy Galdino Uatsdin T4, FREE 2020-01-28 11:13:00 Dorian Gentile-Mariano Barry [place] THYROID STIMULATING HORMONE 2020-01-28 11:13:00 Jalen Gentile Barry Ahmadi Uatsdin CREATINE KINASE, TOTAL (CPK) 2020-01-28 11:13:00 Scarlett Gentile Barry Ahmadi Uatsdin ACETAMINOPHEN LEVEL 2020-01-28 11:13:00 Anny Gentile Barry Ahmadi Uatsdin SALICYLATE LEVEL 2020-01-28 11:13:00 Dorian Gentile-Mariano Go Sonia ston Uatsdin ESTIMATED GFR 2020-01-28 11:13:00 Anny Gentile Barry [place] VALPROIC ACID LEVEL 2020-01-28 11:13:00 Gladys GentileMariano Reddy Ahmadi Uatsdin ECG ED PRELIMINARY INTERPRETATION 2020-01-28 10:43:46 Tj Gentile-Mariano Reddy Ahmadi Uatsdin ECG 12-LEAD 2020-01-28 10:36:43 Anny Gentile Barry [place] URINE CULTURE 2020-01-23 14:21:00 Marta Gentilemelanie Reddy [place] HC COMPLETE BLD COUNT W/AUTO DIFF 2020-01-23 14:15:00 Tj GentileMariano Reddy Ahmadi Uatsdin COMPREHENSIVE METABOLIC PANEL 2020-01-23 14:15:00 Gladys Gentile Barry Galdino Uatsdin T4, FREE 2020-01-23 14:15:00 Anny Gentile Barry [place] ton Uatsdin THYROID STIMULATING HORMONE 2020-01-23 14:15:00 Jalen Gentile Ahmadi Uatsdin CREATINE KINASE, TOTAL (CPK) 2020-01-23 14:15:00 Scarlett Gentileanjel Reddy Ahmadi Uatsdin ACETAMINOPHEN LEVEL 2020-01-23 14:15:00 Anny Gentile Barry Ahmadi Uatsdin SALICYLATE LEVEL 2020-01-23 14:15:00 Marta Gentiley Go Sonia ston Uatsdin ESTIMATED GFR 2020-01-23 14:15:00 NaziaAnny Uatsdin ECG ED PRELIMINARY INTERPRETATION 2020-01-23 14:00:42 Nazia N Lisset Reddy Galdino Uatsdin URINALYSIS SCREEN AND MICROSCOPY, WITH REFLEX TO CULTURE 202 13:59:00 Nazia Anny Reddy Galdino Uatsdin URINE DRUGS OF ABUSE SCREEN 2020-01-23 13:59:00 Nazia Jalen Reddy Galdino Uatsdin HCG QUALITATIVE, URINE SCREEN 2020-01-23 13:59:00 Nazia Gladys Reddy Ahmadi Uatsdin ECG 12-LEAD 2020-01-23 13:57:06 Nazia Anny copeland Uatsdin URINALYSIS SCREEN AND MICROSCOPY, WITH REFLEX TO CULTURE 202 09:57:00 Teofilo Antoine URINE DRUGS OF ABUSE SCREEN 2019-12-29 09:57:00 Teofilo Antoine Uatsdin VALPROIC ACID LEVEL 2019-12-29 08:29:00 Teofilo Antoine [place] U[place] ALCOHOL LEVEL, BLOOD 2019-12-29 08:29:00 Teofilo Antoine HC COMPLETE BLD COUNT W/AUTO DIFF 2019-12-29 08:29:00 Elsie Antoine se COMPREHENSIVE METABOLIC PANEL 2019-12-29 08:29:00 Teofilo Antoine SALICYLATE LEVEL 2019-12-29 08:29:00 Teofilo Antoine Uatsdin T4, FREE 2019-12-29 08:29:00 Teofilo Antoine on Uatsdin THYROID STIMULATING HORMONE 2019-12-29 08:29:00 Teofilo Antoine HCG QUALITATIVE, URINE SCREEN 2019-12-29 08:29:00 Teofilo Antoine Uatsdin ESTIMATED GFR 2019-12-29 08:29:00 Teofilo Antoine on Uatsdin ECG ED PRELIMINARY INTERPRETATION 2019-12-29 08:22:12 Elsie Antoine se Uatsdin ECG 12-LEAD 2019-12-29 08:17:39 Teofilo Antoine on Uatsdin Computed tomography of chest with contrast 2019-09-05 00:00:00 NIRMAL THOMPSON [facility] TROPONIN 2019-08-27 04:19:00 HaoShay child [facility] odist TROPONIN 2019-08-27 00:06:00 HaoShay Meth odist ECG 12-LEAD 2019-08-26 20:15:25 HaoShay Meth odist XR CHEST 2 VW 2019-08-26 19:55:13 HaoShay Meth odist ECG ED PRELIMINARY INTERPRETATION 2019-08-26 19:38:31 HaoAnn Galdino Meredith HC COMPLETE BLD COUNT W/AUTO DIFF 2019-08-26 18:54:00 HaoAnn Galdino Meredith COMPREHENSIVE METABOLIC PANEL 2019-08-26 18:54:00 Hao Shayluz elena Aleman i Galdino Merdeith TROPONIN 2019-08-26 18:54:00 HaoShay Meth odist ESTIMATED GFR 2019-08-26 18:54:00 HaoShay Meth odist GRAM STAIN 2019-08-02 20:21:00 Fletcher Lamas on Uatsdin URINE CULTURE 2019-08-02 20:21:00 Fletcher Lamas on Uatsdin URINALYSIS SCREEN AND MICROSCOPY, WITH REFLEX TO CULTURE 201 05-10-05 19:56:00 Fletcher Lamas HCG QUALITATIVE, URINE SCREEN 2019-08-02 19:56:00 Seamus Lamas HC COMPLETE BLD COUNT W/AUTO DIFF 2019-08-02 16:53:00 Fletcher Lamas BASIC METABOLIC PANEL 2019-08-02 16:53:00 Fletcher Lamas HEPATIC FUNCTION PANEL 2019-08-02 16:53:00 Fletcher Lamas LIPASE LEVEL 2019-08-02 16:53:00 Fletcher Lamas Uats[place] ESTIMATED GFR 2019-08-02 16:53:00 Fletcher Lamas on Uatsdin ECG ED PRELIMINARY INTERPRETATION 2019-08-02 16:21:35 Fletcher Lamas CHLAMYDIA GONORRHOEAE AND TRICHOMONAS PANEL 2019-07-28 09:38 :00 Jimmie Sanches BASIC METABOLIC PANEL 2019-07-27 05:50:00 Dinah Huerta HC COMPLETE BLD COUNT W/AUTO DIFF 2019-07-27 05:50:00 Oswaldo Huerta ESTIMATED GFR 2019-07-27 05:50:00 Dinah Huerta on Uatsdin WET PREP 2019-07-26 22:23:00 Lizette Gracia Meth odist CHLAMYDIA GONORRHOEAE AND TRICHOMONAS PANEL 2019-07-26 22:17:00 Lizette Gracia HIV 1, 2 ANTIBODY 2019-07-26 21:55:00 Lizette Gracia Me thodist SYPHILIS TOTAL ANTIBODY 2019-07-26 21:55:00 Lizette Gracia HEPATITIS B SURFACE ANTIGEN 2019-07-26 21:55:[address] ABDOMEN PELVIS WO CONTRAST 2019-07-26 18:11:24 Seamus Lamas NEISSERIA GONORRHOEAE BY PCR 2019-07-26 17:20:00 Tad Lamas CHLAMYDIA TRACHOMATIS BY PCR 2019-07-26 17:20:00 Tad Lamas TRICHOMONAS VAGINALIS BY PCR 2019-07-26 17:20:00 Tad Lamas US PELVIC TRANSABDOMINAL 2019-07-26 14:00:54 Fletcher Lamas US PELVIC TRANSVAGINAL 2019-07-26 14:00:54 Fletcher Lamas URINE CULTURE 2019-07-26 12:48:00 Fletcher Lamas GRAM STAIN 2019-07-26 12:48:00 Fletcher Lamasist URINALYSIS SCREEN AND MICROSCOPY, WITH REFLEX TO CULTURE 201 05-09-28 11:52:00 Fletcher Lamas HCG QUALITATIVE, URINE SCREEN 2019-07-26 11:52:00 Seamus Lamas HC COMPLETE BLD COUNT W/AUTO DIFF 2019-07-26 11:29:00 Fletcher Lamas BASIC METABOLIC PANEL 2019-07-26 11:29:00 Fletcher Lamas HEPATIC FUNCTION PANEL 2019-07-26 11:29:00 Fletcher Lamas charlie Galdino Meredith LIPASE LEVEL 2019-07-26 11:29:00 Fletcher Lamas on Uatsdin ESTIMATED GFR 2019-07-26 11:29:00 Fletcher Lamas on Uatsdin LIPID PANEL 2019-07-26 11:29:00 Dinah Huerta on Uatsdin HEMOGLOBIN A1C 2019-07-26 11:29:00 Dinah Huerta on Uatsdin TROPONIN 2019-07-03 23:01:00 Shay Bui Meth odist XR CHEST 2 VW 2019-07-03 20:41:40 Shay Bui Meth odist ECG 12-LEAD 2019-07-03 20:19:54 Shay Bui Meth odist ECG ED PRELIMINARY INTERPRETATION 2019-07-03 19:29:35 Ann Bui COMPREHENSIVE METABOLIC PANEL 2019-07-03 19:17:00 Shay Bui i HC COMPLETE BLD COUNT W/AUTO DIFF 2019-07-03 19:17:00 Ann Bui TROPONIN 2019-07-03 19:17:00 Shay Bui Meth odist B NATRIURETIC PEPTIDE 2019-07-03 19:17:00 Shay Buito n Uatsdin ESTIMATED GFR 2019-07-03 19:17:00 Shay Bui Meth odist History of Section [facility] History of Gallbladder surgery U [facility] History of Tubal Ligation [facility] Plan of Care Planned Activity Planned Date Details Comments Source Future Scheduled Test 2020-03-29 00:00:00 INFLUENZA VACCINE [code = INFLUENZA VACCINE] Galdino Meredith Future Scheduled Test 2000 00:00:00 Screening for cary gnant neoplasm of cervix (procedure) [code = 420829803] Galdino bermeo Future Appointment 2020-07-03 09:40:00 [facility] Start Date/Time End Date/Time Encounter Type Admission Type Attendi [facility] Care Department Encounter ID Source 2020-05-26 10:00:00 2020-05-26 10:00:00 Appointment; GEORGES NAJERA M.D. TRANG, AMANDA, M.D. [facility] Advanced Heart Failure [facility] [id number] [facility] 2020-03-07 00:00:00 2020-03-07 00:00:00 Office Visit Raheel Kennedy ma [facility] Encounter/[id number] [facility] 2020-01-28 00:00:00 2020-01-29 00:00:00 Emergency Tj GENT[place] [id number] [place] Uatsdin 2020-01-23 00:00:00 2020-01-23 00:00:00 Emergency Tj [place] [address] [id number] [facility] 2019-12-29 00:00:00 2019-12-29 00:00:00 Emergency MERVIN TEOFILO gR 064 [id number] [facility] 2019-09-12 00:00:00 2019-09-12 00:00:00 Office Visit Britney Thornton [facility] Encounter/[id number] [facility] 2019-09-05 12:26:00 2019-09-05 17:34:00 Departed Emergency Room 1 NIRMAL ALFORD [facility] [id number] [facility] 2019-08-26 00:00:00 2019-08-28 00:00:00 Outpatient MOLLY VOGEL [facility] [id number] [facility] 2019-08-02 00:00:00 2019-08-02 00:00:00 Emergency SEAMUS LAMAS [facility] [id number] Earleton Uatsdin 2019-07-26 00:00:00 2019-07-28 00:00:00 Outpatient DANUTA BOLAND [facility] [id number] [facility] 2019-07-03 00:00:00 2019-07-04 00:00:00 Emergency SHAY BUI H 064 [id number] [place] Uatsdin Results Test Description Test Time Test Comments Results Result Comments Source Urine culture 2020-01-29 15:59:34 Test Item Urine culture isolate (test code = 83744-8) Mixed rebeka 10-5 col/cc Specimen InformationSpecimen Source: UrineSpecimen Site: Clean catch Ahmadi UatsdinECG 12 [id number] 14:00:29* Test Item Value Reference Range Interpretation Comments Ventricular rate (test code = 253) 70 Atrial rate (test code = 255) 70 NH interval (test code = 266) 150 QRSD interval (test code = 260) 88 QT interval (test code = 264) 408 QTC interval (test code = 265) 440 P axis 1 (test code = 267) 12 QRS axis 1 (test code = 268) 42 T wave axis (test code = 270) 16 EKG impression (test code = 273) Normal sinus rhythm-I n automated comparison with ECG of 23-JAN-2020 13:57,-No significant change was found- [facility] [id number] 12:35:56* Test Item Value Reference Range Interpretation Comments Amphetamine screen, urine (test code = 3349-8) Positive A Barbiturate screen, urine (test code = 3377-9) Negative Benzodiazepine screen, urine (test code = 3390-2) Positive A Cocaine screen, urine (test code = 3397-7) Negative Methadone metabolite (EDDP), urine (test code = 51704-4) Negative Opiates screen, urine (test code = 3879-4) Negative Oxycodone screen, urine (test code = 09616-6) Negative Phencyclidine screen, urine (test code = 3936-2) Negative Cannabinoid screen, urine (test code = 3427-2) Positive A Drug screen minimum concentration of detectabilityAmphetamines 1000 ng/mLBarbiturates 200 ng/mLBenzodiazepines 300 ng/mLCocaine 300 ng/mLMethadone 300 ng/mLOpiates 300 ng/mLOxycodone 300 ng/mLPhencyclidine 25 ng/mLCannabinoids 50 ng/mLTricyclics 1000 ng/mLResults are from screening tests and should only be used for medical evaluation. Drug testing for legal purposes requires definitive (or confirmatory) testing methods, which are available upon request. Contact the laboratory if definitive testing is required. Lab Interpretation (test code = 26674-2) Abnormal [facility] MethodistValproic acid [id number] 12:04:39* Test Item Value Reference Range Interpretation Comments Valproic acid (test code = 97733-4) 2.8 ug/mL 50-100 L Therapeutic Range: 50 - 100 ug/mL Lab Interpretation (test code = 78447-0) Abnormal [facility] MethodistT4, [id number] 12:04:25* Test Item Value Reference Range Interpretation Comments T4, free (test code = 3024-7) 0.79 ng/dL 0.9-1.7 L Lab Interpretation (test code = 09586-1) Abnormal Ear[facility] MethodistThyroid stimulating [id number] 12:04:25* Test Item Value Reference Range Interpretation Comments TSH (test code = 3016-3) 0.62 0.27- 4.20 uIU/mL [facility] MethodistUrinalysis screen and microscopy, with reflex to culture 2020-01-28 12:03:50* Test Item Value Reference Range Interpretation Comments Specimen site (test code = 4281779) Clean catch Color, UA (test code = 5778-6) Red Appearance, UA (test code = 5767-9) Cloudy Specific gravity, UA (test code = 5811-5) 1.029 1.001-1.035 pH, UA (test code = 5803-2) 5.0 5.0-8.5 Protein, UA (test code = 66523-3) 2+ Negative A Glucose, UA (test code = 17083-5) Negative Negative Ketones, UA (test code = 2514-8) Negative Negative Bilirubin, UA (test code = 5770-3) Negative Negative Blood, UA (test code = 5794-3) Large Negative A Nitrite, UA (test code = 5802-4) Negative Negative Urobilinogen, UA (test code = 93193-2) Negative <2.0 Leukocyte esterase, UA (test code = 5799-2) Negative Negative Epithelial cells, UA (test code = 5787-7) Many /HPF WBC, UA (test code = 5821-4) 15 0- 5 /HPF H RBC, UA (test code = 42812-4) >200 0- 5 /HPF H Bacteria, UA (test code = 82686-1) None seen None seen Yeast, UA (test code = 38618-5) None seen Yeast with pseudohyphae, UA (test code = 25435-2) None seen Lab Interpretation (test code = 01239-2) Abnormal [facility] prcfx5425-45-55 11:57:52* Test Item Value Reference Range Interpretation Comments Sodium (test code = 2951-2) 141 135- 150 mEq/L Potassium (test code = 2823-3) 3.9 3.5- 5.0 mEq/L Chloride (test code = 2075-0) 105 98- 112 mEq/L CO2 (test code = 8-9) 25 mmol/L 24-31 Anion gap (test code = 12649-0) 11@ANIO 7- 15 mEq/L BUN (test code = 3094-0) 11 mg/dL 7-18 Creatinine (test code = 2160-0) 0.70 mg/dL 0.5-0.9 Glucose (test code = 2345-7) 109 mg/dL 65-100 H Calcium (test code = 26885-1) 9.5 mg/dL 8.3-10.2 Protein (test code = 2885-2) 7.3 g/dL 6.3-8.3 Albumin (test code = 1751-7) 3.5 g/dL 3.5-5 A/G ratio (test code = 1759-0) 0.9 0.7-3.8 Alkaline phosphatase (test code = 6768-6) 58 U/L 0-104 AST (test code = 1920-8) 18 U/L 10-35 ALT (test code = 1742-6) 20 U/L 5-50 Total bilirubin (test code = 1974-2) 0.3 mg/dL 0.2-1.2 Lab Interpretation (test code = 30920-5) Abnormal [facility]Creatine kinase, total (CPK)2020-01-28 11:57:52* Test Item Value Reference Range Interpretation Comments Creatine kinase (test code = 2157-6) 29 U/L 26-192 [facility] MethodistEstimated [id number] 11:57:51* Test Item Value Reference Range Interpretation Comments Estimated GFR (test code = 5488) >=90 mL/min/1.73 m2 Catergory Units InterpretationG1 >=90 Normal or highG2 60-89 Mildly lgbksxdtlS9e 45-59 Mildly to moderately xsiwgnhvwM7y 30-44 Moderately to severely decreasedG4 15-29 Severely decreasedG5 <15 Kidney failureThe eGFR was calculated using the Chronic Kidney Disease Epidemiology Collaboration (CKD-EPI) equation. Interpretation is based on recommendations of the National Kidney Foundation-Kidney Disease Outcomes Quality Initiative (NKF-KDOQI) published in 2014. [facility] MethodisthCG qualitative, urine zgcccz0848-56-43 11:57:19* Test Item Value Reference Range Interpretation Comments hCG qualitative, urine (test code = 2106-3) Negative Negative The manufacturers stated sensitivity of HcG test for serum is >/= 10 mIU/ml and urine is >/= 20mIU/ml. [facility] HospitalistSalicylate nxtnn6920-98-35 11:57:00* Test Item Value Reference Range Interpretation Comments Salicylate (test code = 4024-6) <0.4 3-30 L Therapeutic Range: 5 - 30 mg/dL Lab Interpretation (test code = 80447-4) Abnormal [facility] MethodistAcetaminophen xatoi5342-58-02 11:57:00* Test Item Value Reference Range Interpretation Comments Acetaminophen level (test code = 3298-7) <15.3 10-30 Therapeutic 10- 30 ug/mL Possible Toxicity 150-200 ug/mL Probable Toxicity >200 ug/mL [facility] RonistAlcohol level, rcupn0204-03-75 11:51:47* Test Item Value Reference Range Interpretation Comments Alcohol percent (test code = 5643-2) None Detected % Normal None DetectedLegal Intoxication in [place] 80 mg/dL (0.08%)Toxic Concentration 200 mg/dL (0.2%)Potentially Fatal 350-500 mg/dL (0.35%-0.5%) [facility] MethodistCBC with platelet and ufgcvugzxxhs7777-67-06 11:38:30* Test Item Value Reference Range Interpretation Comments WBC (test code = 81109-8) 7.5 4.2- 11.0 k/uL RBC (test code = 40790-7) 4.87 m/uL 4.04-5.86 HGB (test code = 718-7) 11.5 g/dL 11.5-15.3 HCT (test code = 4544-3) 39.2 % 34-45 MCV (test code = 787-2) 80.5 fL 80-98 MCH (test code = 785-6) 23.6 pg 27-34 L MCHC (test code = 786-4) 29.3 g/dL 31.5-36.5 L RDW - SD (test code = 81591-6) 47.2 fL 37-51 MPV (test code = 08948-5) 10.5 fL 7.4-10.4 H Platelet count (test code = 78851-1) 440 150- 400 k/uL H Nucleated RBC (test code = 82512-1) 0.00 /100 WBC Neutrophils (test code = 07447-9) 65.9 % 36-66 Lymphocytes (test code = 26166-1) 26.5 % 24-44 Monocytes (test code = 36807-4) 5.2 % 0-6 Eosinophils (test code = 96333-7) 0.8 % 0-6 Basophils (test code = 33719-2) 0.8 % 0-1.2 Immature granulocytes (test code = 69012-7) 0.8 % 0-1 Lab Interpretation (test code = 80487-2) Abnormal [facility] ED Preliminary Interpretation - Not an Dazyj8243-12-44 10:43:46Anny Gentile MD 01/30/2020 7:06 [facility] ED Preliminary Interpretation - Not an OrderPerformed by: Anny Gentile MDAuthorized by: Anny Gentile MD ECG reviewed by ED Physician in the absence of a co founder: yes Interpretation: Interpretation: normal Rate: ECG rate: 70 ECG rate assessment: normal Rhythm: Rhythm: sinus rhythm Ectopy: Ectopy: none QRS: QRS axis: Normal QRS intervals: NormalConduction: Conduction: normal ST segments: ST segments: NormalT waves: T waves: normal [facility] MethodistCreatine Kinase DJ8010-89-99 17:11:00* Test Item Value Reference Range Interpretation Comments Creatine Kinase MB (test code = 87157-7) 0.20 0-5.0 [facility]rop[facility] Z6906-52-29 17:11:00* Test Item Value Reference Range Interpretation Comments Troponin I (test code = BBK7080) < 0.001 0-0.300 [facility]oCreatine Fjztpt6199-85-72 17:04:00* Test Item Value Reference Range Interpretation Comments Creatine Kinase (test code = 2157-6) 21 29-168 L [facility]oCT CHEST N5560-34-14 16:27:00 [facility] [address] [address] Patient Name: RAE MCKEON MR #: [id number] : 1980 Age/Sex: 38/F Req #: [id number] Adm Physician: Ordered by: NIRMAL ALFORD MD Report #: [id number] Location: ER Room/Bed: Procedure: [id number] CT/ CT CHEST W Exam Date: 09/05/19 Exam Time: 1540 REPORT STATUS: Signed CT of the chest, with contrast. History: Shortness of breath, concern for pulmonary em bolism Comparison: None available. Technique: Multidetector CT scannin g of the chest was performed from the level of the thoracic inlet to the upper abdomen after IV contrast administration . Thin collimation scanning through the pulmonary arteries was performed during the early phase. Coronal MIP refo rmations were obtained. DOSE REDUCTION: The examination was performed accor ding to departmental dose-optimization program which includes automated exposu re control, adjustment of the mA and/or kV according to patient size and/or us e of iterative reconstruction technique. Discussion: The patient was portions of the thyroid gland are unremarkable. There is no axillary, m ediastinal, or hilar lymphadenopathy. The heart is within normal limits of size. There is no pericardial effusion. The thoracic aorta is of normal cou rse and caliber. The pulmonary artery is normal in size. No filling defects are identified in the pulmonary artery branches to indicate pulmonary embolis m. The trachea and central airways are clear. There is no focal consol idation. Minimal dependent bibasilar atelectasis is present. Small pne umatoceles are identified in the right upper lobe and right lower lobe. T here is no pleural effusion or pneumothorax. Limited evaluation of the uppe r abdomen demonstrates no focal hepatic lesions in the visualized portions of the liver. There are no acute osseous abnormalities. IMPRESSION: 1. No evidence of pulmonary embolism. 2. No CT evidence of acute intrathora cic abnormality. Signed by: Shaw Graf MD on 09/05/2019 4:34 PM Dictated By: SHAW GRAF MD 1634 Transcribed By: MICAELA on 09/05/19 1634 COPY TO: NIRMAL BOCANEGRA MD Urine [id number] 14:45:00* Test Item Value Reference Range Interpretation Comments Urine WBC (test code = 5821-4) NONE 0-5 [facility] NDB8386-65-94 14:45:00* Test Item Value Reference Range Interpretation Comments Urine RBC (test code = 65684-7) NONE 0-5 [facility] Wwvjcqku9020-89-17 14:45:00* Test Item Value Reference Range Interpretation Comments Urine Bacteria (test code = 43005-0) FEW NONE [facility] Epithelial Imikx8101-08-59 14:45:00 * Test Item Value Reference Range Interpretation Comments Urine Epithelial Cells (test code = 14754-1) MANY NONE [facility]oU[facility] Opiates Rkbmtj3759-55-73 14:35:00* Test Item Value Reference Range Interpretation Comments Urine Opiates Screen (test code = 19679-1) NEGATIVE NEGATIVE ALL TESTS PERFORMED MANUALLY ON [employer] TOX/SEE TESTDoctors Hospital of LaredoUrine Barbiturates Otcnrr7028-13-85 14:35:00* Test Item Value Reference Range Interpretation Comments Urine Barbiturates Screen (test code = 686475631) NEGATIVE NEGA TIVE [facility]oU[facility] Phencyclidine Skqivj0068-67-15 14:35:00* Test Item Value Reference Range Interpretation Comments Urine Phencyclidine Screen (test code = 50023-7) NEGATIVE NEGAT CLAUDIA [facility]oU[facility] Amphetamines Vqfurg7717-30-40 14:35:00* Test Item Value Reference Range Interpretation Comments Urine Amphetamines Screen (test code = 70716-2) NEGATIVE NEGATI VE [facility]oU[facility] Methamphetamines Hnrwdp0022-11-77 14:35:00* Test Item Value Reference Range Interpretation Comments Urine Methamphetamines Screen (test code = Urine Metha mphetamines Screen) NEGATIVE NEGATIVE [facility] Benzodiazepines Xllhof3121-86-17 14:35:00* Test Item Value Reference Range Interpretation Comments Urine Benzodiazepines Screen (test code = 48899-9) POSITIVE NEG ATIVE H This test provides only a screen. Positive results should be repeated by a confi rmatory test.[facility]aredoUrine Cocaine Screen 2019-09-05 14:35:00* Test Item Value Reference Range Interpretation Comments Urine Cocaine Screen (test code = 3398-5) NEGATIVE NEGATIVE [facility]oU[facility] Cannabinoids Ryulvw6356-12-79 14:35:00* Test Item Value Reference Range Interpretation Comments Urine Cannabinoids Screen (test code = 25841-9) NEGATIVE NEGATI VE THESE RESULTS ARE FOR MEDICAL TREATMENT ONLYTHIS REPORT CONTAINS UNCONFIR MED SCREENING RESULTS*POSITIVE RESULTS WILL BE CONFIRMED BY REFERENCE LAB UPON R EQUEST CUT-OFFDRUG CLASS CONCENTRATION ng/mLAmphetamines 1000Methamphetamines 1000Cocaine 300Opiate 300Phencyc lidine 25Cannabinoid 50Barbiturates 300Benzodiazepine 300Methadone 300[facility]oUrine Methadone Yenkar6913-71-42 14:35:00* Test Item Value Reference Range Interpretation Comments Urine Methadone Screen (test code = 21697-2) NEGATIVE NEGATIVE THESE RESULTS ARE FOR MEDICAL TREATMENT ONLYTHIS REPORT CONTAINS UNCONFIR MED SCREENING RESULTS*POSITIVE RESULTS WILL BE CONFIRMED BY REFERENCE LAB UPON R EQUEST CUT-OFFDRUG CLASS CONCENTRATION ng/mLAmphetamines 1000Methamphetamines 1000Cocaine Metabolite 300Opiate 300Phencyc lidine 25Cannabinoid 50Barbiturates 300Benzodiazepine 300Methadone 300[facility]Urine Wvqhr5554-59-75 14:32:00* Test Item Value Reference Range Interpretation Comments Urine Color (test code = 5778-6) YELLOW YELLOW [facility]oU[facility] Lydhjit5853-20-30 14:32:00* Test Item Value Reference Range Interpretation Comments Urine Clarity (test code = 23271-2) SL CLOUDY CLEAR [facility]oU[facility] Specific Vgcrszq4312-70-51 14:32:00 * Test Item Value Reference Range Interpretation Comments Urine Specific [place] (test code = 5811-5) 1.025 1.010-1.02 5 [facility]oU[facility] [id number] 14:32:00* Test Item Value Reference Range Interpretation Comments Urine pH (test code = 54341-8) 7 5-7 [facility] Leukocyte Zenxztxe9133-83-54 14:32:00* Test Item Value Reference Range Interpretation Comments Urine Leukocyte Esterase (test code = 5799-2) NEGATIVE NEGATIVE [facility] Bioxevz1943-93-63 14:32:00* Test Item Value Reference Range Interpretation Comments Urine Nitrite (test code = 38290-0) NEGATIVE NEGATIVE [facility] Tvaqyqr9037-72-84 14:32:00* Test Item Value Reference Range Interpretation Comments Urine Protein (test code = 5804-0) NEGATIVE NEGATIVE [facility] Glucose (UA)2019-09-05 14:32:00* Test Item Value Reference Range Interpretation Comments Urine Glucose (UA) (test code = 2349-9) NEGATIVE NEGATIVE [facility]oU[facility] Oupsrfp1243-65-95 14:32:00* Test Item Value Reference Range Interpretation Comments Urine Ketones (test code = 08960-6) NEGATIVE NEGATIVE [facility]oU[facility] Benkcxfutccp7427-29-37 14:32:00* Test Item Value Reference Range Interpretation Comments Urine Urobilinogen (test code = 85629-0) 0.2 0.2-1 [facility]oU[facility] Zewctoevs3007-68-81 14:32:00* Test Item Value Reference Range Interpretation Comments Urine Bilirubin (test code = 1978-6) NEGATIVE NEGATIVE [facility]oU[facility] Dhfev7098-56-88 14:32:00* Test Item Value Reference Range Interpretation Comments Urine Blood (test code = 48686-0) NEGATIVE NEGATIVE [facility] LaredoB-Type Natriuretic Qyhvmqf9917-42-14 14:28:00* Test Item Value Reference Range Interpretation Comments B-Type Natriuretic Peptide (test code = 48065-9) < 10.0 0-100 [facility]aredoThyroid Stimulating Hormone (TSH) 2019-09-05 14:28:00* Test Item Value Reference Range Interpretation Comments Thyroid Stimulating Hormone (TSH) (test code = 00401-4) 0.923 0.350-4.940 [facility] LaredoD-Dimer Quantitative (PE/DVT)2019-09-05 14:09:00* Test Item Value Reference Range Interpretation Comments D-Dimer Quantitative (PE/DVT) (test code = 97963-8) 0.49 0. 00-0.45 H As with all in vitro diagnostic tests, the test results should be interpreted by the physician in conjunction with clinical findings and other test results.Test results are reported in NEW D-dimer units(ug/mLFEU).[facility] Hospitalodium Xgdwx3398-74-09 14:05:00* Test Item Value Reference Range Interpretation Comments Sodium Level (test code = 2951-2) 140 136-145 [facility]oPotassium Tplbz9308-60-67 14:05:00* Test Item Value Reference Range Interpretation Comments Potassium Level (test code = 2823-3) 4.2 3.5-5.1 [facility]oChloride Fptxg6389-84-81 14:05:00* Test Item Value Reference Range Interpretation Comments Chloride Level (test code = 2075-0) 109 98-107 H [facility] LaredoCarbon Dioxide Uavya9192-67-72 14:05:00* Test Item Value Reference Range Interpretation Comments Carbon Dioxide Level (test code = 2028-9) 20 22-29 L [facility] LaredoAnion Sxe9180-92-10 14:05:00* Test Item Value Reference Range Interpretation Comments Anion Gap (test code = 61815-5) 15.2 8-16 [facility]aredoBlood Urea Xahfdfpb5988-28-25 14:05:00* Test Item Value Reference Range Interpretation Comments Blood Urea Nitrogen (test code = 3094-0) 11 7-26 [facility]oCreatinine2020-01-08 14:05:00* Test Item Value Reference Range Interpretation Comments Creatinine (test code = 2160-0) 0.79 0.57-1.11 [facility]oBUN/Creatinine Cgmvf6835-60-50 14:05:00* Test Item Value Reference Range Interpretation Comments BUN/Creatinine Ratio (test code = 3097-3) 14 6-25 [facility] LaredoEstimat Glomerular Filtration Rate 2019-09-05 14:05:00* Test Item Value Reference Range Interpretation Comments Estimat Glomerular Filtration Rate (test code = 149440384) > 60 >60 Ranges were taken from the National Kidney Disease Education Program and the [facility] Kid[facility] Foundation literature.Reference ranges:60 or greater: Olqkdo20-56 ( for 3 consecutive months): Chronic kidney disease 15 or less: Kidney failureDoctors Hospital of LaredoGlucose Lvuml0298-39-78 14:05:00* Test Item Value Reference Range Interpretation Comments Glucose Level (test code = PGI5386) 101 74-118 [facility]aredoCalcium Mtjvr8837-43-14 14:05:00* Test Item Value Reference Range Interpretation Comments Calcium Level (test code = 47269-4) 9.2 8.4-10.2 [facility] LaredoMagnesium Hhdgc9581-75-83 14:05:00* Test Item Value Reference Range Interpretation Comments Magnesium Level (test code = 06886-2) 2.1 1.3-2.1 [facility] LaredoTotal Fkfkdfkpi9008-93-46 14:05:00* Test Item Value Reference Range Interpretation Comments Total Bilirubin (test code = 1975-2) 0.2 0.2-1.2 [facility] LaredoAspartate Amino Transf (AST/SGOT) 2019-09-05 14:05:00* Test Item Value Reference Range Interpretation Comments Aspartate Amino Transf (AST/SGOT) (test code = Aspartate Amino Transf (AST/SGOT)) 14 5-34 [facility] LaredoAlanine Aminotransferase (ALT/SGPT) 2019-09-05 14:05:00* Test Item Value Reference Range Interpretation Comments Alanine Aminotransferase (ALT/SGPT) (test code = 1742-6) 22 0-55 [facility] Keyjusu8425-31-85 14:05:00* Test Item Value Reference Range Interpretation Comments Total Protein (test code = 2885-2) 6.9 6.5-8.1 [facility] LaredoAlbumin2020-01-08 14:05:00* Test Item Value Reference Range Interpretation Comments Albumin (test code = 1751-7) 3.5 3.5-5.0 [facility]aredoGlobulin2020-01-08 14:05:00* Test Item Value Reference Range Interpretation Comments Globulin (test code = 01784-8) 3.4 2.3-3.5 [facility] LaredoAlbumin/Globulin Yuyea3826-86-07 14:05:00 * Test Item Value Reference Range Interpretation Comments Albumin/Globulin Ratio (test code = 1759-0) 1.0 0.8-2.0 [facility] LaredoAlkaline Whjuowmkkzy0493-63-09 14:05:00* Test Item Value Reference Range Interpretation Comments Alkaline Phosphatase (test code = 6768-6) 71 40-150 [facility] LaredoActivated Partial Thromboplast Time 2019-09-05 13:49:00* Test Item Value Reference Range Interpretation Comments Activated Partial Thromboplast Time (test code = 02025-6) 30.3 23.8-35.5 [facility] LaredoProthrombin Vthc5628-23-64 13:48:00* Test Item Value Reference Range Interpretation Comments Prothrombin Time (test code = 5902-2) 12.0 11.9-14.5 [facility] LaredoProthromb Time International Ratio 2019-09-05 13:48:00* Test Item Value Reference Range Interpretation Comments Prothromb Time International Ratio (test code = 6301-6) 0.84 Oral Anticoagulant Therapy INR Values:1. Low Intensity Therapy 1.5 - 2.02 . Moderate Intensity Therapy 2.0 - 3.03. High Intensity Therapy(1) 2.5 - 3. 54. High Intensity Therapy(2) 3.0 - 4.05. Panic Value INR > 5.0 [facility] LaredoWhite Blood Sdrea1607-44-93 13:37:00* Test Item Value Reference Range Interpretation Comments White Blood Count (test code = 6690-2) 10.35 4.8-10.8 [facility] LaredoRed Blood Ubyjo7948-22-06 13:37:00* Test Item Value Reference Range Interpretation Comments Red Blood Count (test code = 789-8) 4.89 3.6-5.1 [facility]aredoHemoglobin2020-01-08 13:37:00* Test Item Value Reference Range Interpretation Comments Hemoglobin (test code = 20432-7) 12.0 12.0-16.0 [facility]aredoHematocrit2020-01-08 13:37:00* Test Item Value Reference Range Interpretation Comments Hematocrit (test code = 4544-3) 39.8 34.2-44.1 [facility] LaredoMean Corpuscular Wapbfl3305-22-12 13:37:00* Test Item Value Reference Range Interpretation Comments Mean Corpuscular Volume (test code = 787-2) 81.4 81-99 [facility] LaredoMean Corpuscular Xiuugjeygr8454-05-67 13:37:00* Test Item Value Reference Range Interpretation Comments Mean Corpuscular Hemoglobin (test code = 785-6) 24.5 28-32 L [facility] Corpuscular Hemoglobin Concent 2019-09-05 13:37:00* Test Item Value Reference Range Interpretation Comments Mean Corpuscular Hemoglobin Concent (test code = 786-4) 30.2 31-35 L [facility] LaredoRed Cell Distribution Rxbpg8527-04-86 13:37:00* Test Item Value Reference Range Interpretation Comments Red Cell Distribution Width (test code = 15080-9) 16.9 11.7 -14.4 H [facility] LaredoPlatelet Ddieo4376-56-30 13:37:00* Test Item Value Reference Range Interpretation Comments Platelet Count (test code = 777-3) 449 140-360 H [facility]aredoNeutrophils (%) (Auto)2019-09-05 13:37:00 * Test Item Value Reference Range Interpretation Comments Neutrophils (%) (Auto) (test code = 73951-6) 70.1 38.7-80.0 [facility] LaredoLymphocytes (%) (Auto)2019-09-05 13:37:00 * Test Item Value Reference Range Interpretation Comments Lymphocytes (%) (Auto) (test code = 736-9) 22.0 18.0-39.1 [facility]aredoMonocytes (%) (Auto)2019-09-05 13:37:00* Test Item Value Reference Range Interpretation Comments Monocytes (%) (Auto) (test code = 5905-5) 5.9 4.4-11.3 [facility]oEosinophils (%) (Auto)2019-09-05 13:37:00 * Test Item Value Reference Range Interpretation Comments Eosinophils (%) (Auto) (test code = 713-8) 0.7 0.0-6.0 [facility]aredoBasophils (%) (Auto)2019-09-05 13:37:00* Test Item Value Reference Range Interpretation Comments Basophils (%) (Auto) (test code = 706-2) 0.8 0.0-1.0 [facility] LaredoIM GRANULOCYTES %2019-09-05 13:37:00* Test Item Value Reference Range Interpretation Comments IM GRANULOCYTES % (test code = IM GRANULOCYTES %) 0.5 0.0- 1.0 [facility]aredoNeutrophils # (Auto)2019-09-05 13:37:00* Test Item Value Reference Range Interpretation Comments Neutrophils # (Auto) (test code = 751-8) 7.3 2.1-6.9 H [facility] LaredoLymphocytes # (Auto)2019-09-05 13:37:00* Test Item Value Reference Range Interpretation Comments Lymphocytes # (Auto) (test code = 55909-0) 2.3 1.0-3.2 [facility]aredoMonocytes # (Auto)2019-09-05 13:37:00* Test Item Value Reference Range Interpretation Comments Monocytes # (Auto) (test code = 742-7) 0.6 0.2-0.8 [facility]oEosinophils # (Auto)2019-09-05 13:37:00* Test Item Value Reference Range Interpretation Comments Eosinophils # (Auto) (test code = 711-2) 0.1 0.0-0.4 [facility]aredoBasophils # (Auto)2019-09-05 13:37:00* Test Item Value Reference Range Interpretation Comments Basophils # (Auto) (test code = 704-7) 0.1 0.0-0.1 [facility] LaredoAbsolute Immature Granulocyte (auto 2019-09-05 13:37:00* Test Item Value Reference Range Interpretation Comments Absolute Immature Granulocyte (auto (efrain t code = Absolute Immature Granulocyte (auto) 0.05 0-0.1 [facility]aredoCHEST SINGLE (PORTABLE)2019-09-05 13:28:00 [facility] [address] [place] [address] Patient Name: RAE MCKEON MR #: [id number] : 1980 Age/Sex: 38/F Req #: [id number] Adm Physician: Ordered by: NIRMAL ALFORD MD Report #: [id number] Location: ER Room/Bed: Procedure: [id number] DX/ CHEST SINGLE (PORTABLE) Exam Date: 09/05/19 Exam [place] e: 1300 REPORT STATUS: Signed Ch est, portable AP view History: Chest pain Comparison: No comparisons a vailable for review IMPRESSION: The cardiomediastinal silhouette and p ulmonary vasculature are within normal limits. The lungs are clear without livier dence of consolidation or effusion. There are no acute osseous abnormalities. Signed by: Shaw Graf MD on 09/05/2019 1:28 PM Dictated By: ST BERKLEY GRAF MD 132 8 Transcribed By: MICAELA on 09/05/19 1328 COPY TO: NIRMAL ALFORD MD Blsigybv9765-51-76 05:20:11* Test Item Value Reference Range Interpretation Comments Troponin (test code = 43548-9) <0.006 0-0.04 In patients suspected of having a myocardial infarction, along with all other appropriate clinical measures and actions including ECG and other diagnostics as appropriate, measure Ultra TnI at 0 hrs and at 3 hrs.Myocardial infarction VERY LIKELYThe 0 hr TnI level is > 0.10 ng/mL Cj cardial infarction LIKELYThe 0 hr TnI level is > 0.04 ng/mL and 3 hr level is increased or decreased by at least 0.020 ng/mL Myocardi al infarction VERY UNLIKELYBoth the 0 hr and 3 hr TnI levels <= 0.04 ng/mL(within normal limits) OR 0 hr is > 0.04 ng/mL and 3 hr is increased OR decreased by less than 0.020 ng/mL [facility]XR Chest 2 [id number] 19:55:55Hm Interface, Radiology Results Incoming - 08/26/2019 7:59 PM CSTEXAMINATION: XR CHEST 2 VWCLINICAL HISTORY: 38 years Female Chest pain normal ekgCOMPARISON: July 03, 2019IMPRESSION:The cardiomediastinal silhouette is not enlarged The lungs are clear The osseous structures are within normal limits.. [facility]-[id number] MethodistGram [id number] 11:12:04* Test Item Value Reference Range Interpretation Comments Gram stain result (test code = 664-3) No WBC's or organisms seen. Specimen InformationSpecimen Source: UrineSpecimen Site: Clean catch [facility] HospitalistBasic metabolic [id number] 17:56:39* Test Item Value Reference Range Interpretation Comments Sodium (test code = 2951-2) 142 135- 150 mEq/L Potassium (test code = 2823-3) 3.8 3.5- 5.0 mEq/L Chloride (test code = 2075-0) 105 98- 112 mEq/L CO2 (test code = 8-9) 25 mmol/L 24-31 Anion gap (test code = 31431-8) 12@ANIO 7- 15 mEq/L BUN (test code = 3094-0) 11 mg/dL 7-18 Creatinine (test code = 2160-0) 0.90 mg/dL 0.5-0.9 Glucose (test code = 2345-7) 104 mg/dL 65-100 H Calcium (test code = 25657-0) 9.4 mg/dL 8.3-10.2 Lab Interpretation (test code = 48418-2) Abnormal [facility] MethodistHepatic function [id number] 17:56:37* Test Item Value Reference Range Interpretation Comments Albumin (test code = 1751-7) 3.5 g/dL 3.5-5 Total bilirubin (test code = 1975-2) <0.3 0.2-1.2 Bilirubin direct (test code = 1968-7) <0.2 0-0.4 Alkaline phosphatase (test code = 6768-6) 81 U/L 0-104 Protein (test code = 2885-2) 7.3 g/dL 6.3-8.3 ALT (test code = 1742-6) 30 U/L 5-50 AST (test code = 1920-8) 22 U/L 10-35 [facility] MethodistLipase [id number] 17:56:37* Test Item Value Reference Range Interpretation Comments Lipase (test code = 3040-3) 30 U/L 13-60 [facility] MethodistChlamydia gonorrhoeae and trichomonas [id number] 22:45:09 * Test Item Value Reference Range Interpretation Comments Chlamydia trachomatis by PCR (test code = 22450-4) Neg ative for Chlamydia trachomatis. Specimen Information Specimen Source: UrineSpecimen Site: Midstream Neisseria gonorrhoeae by PCR (test code = 20823-4) Neg ative for Neisseria gonorrhoeae. Trichomonas vaginalis by PCR (test code = 65886-6) Neg ative for Trichomonas vaginalis. [facility] MethodistTrichomonas vaginalis by [id number] 22:25:32* Test Item Value Reference Range Interpretation Comments Trichomonas vaginalis by PCR (test code = 18911-0) Neg ative for Trichomonas vaginalis. Specimen Information Specimen Source: UrineSpecimen Site: Urine, clean catch [facility] MethodistNeisseria gonorrhoeae by [id number] 22:25:32* Test Item Value Reference Range Interpretation Comments Neisseria gonorrhoeae by PCR (test code = 02897-2) Neg ative for Neisseria gonorrhoeae. Specimen Information Specimen Source: UrineSpecimen Site: Urine, clean catch [facility] MethodistChlamydia trachomatis by [id number] 22:25:32* Test Item Value Reference Range Interpretation Comments Chlamydia trachomatis by PCR (test code = 86841-7) Neg ative for Chlamydia trachomatis. Specimen Information Specimen Source: UrineSpecimen Site: Urine, clean catch [facility] MethodistSyphilis total [id number] 10:10:00* Test Item Value Reference Range Interpretation Comments Syphilis total antibody (test code = 6194) Non-reactive Non-reactiv e No serological evidence of syphilis infection. [facility] [id number] 23:25:34* Test Item Value Reference Range Interpretation Comments HIV 1, 2 antibody (test code = 7918-6) Non-Reactive Non-reactive Starting from November 25 2015, 4th generation HIV screening and confirmation assays are in use at [facility], consistent with the CDC-recommended algorithm. [...] on the testing algorithm, please refer to: http://stacks.cdc.gov/view/cdc/73696. [facility] CenterHepatitis B surface [id number] 22:56:34* Test Item Value Reference Range Interpretation Comments Hepatitis B surface Ag (test code = 5195-3) Non-reactive Non-reacti ve [facility] hospitalWet [id number] 22:53:04Wet prep resultNo Trichomonas vaginalis seenNo WBC's seenNo Clue cells seenFew Yeast Comment: Specimen InformationSpecimen Source: VaginalSpecimen Site: Other- Detailed Description Required [facility] MethodistHemoglobin A1c 2019-07-26 19:19:57* Test Item Value Reference Range Interpretation Comments Hemoglobin A1C (test code = 32108-7) 5.7 % 4-5.6 H HbA1c cutoffs for diagnosing diabetes:4.0% - 5.6% = normal5.7% - 6.4% = increased risk for diabetes (prediabetes)9>=6.5% = [id number] for glycemic control (ADA 2016)< 7.0% Target for non adults with diabetes. More or less stringent targets may be appropriate for individual patients. <7.5% Target for Children and adolescents with type 1 diabetes. MIKEY (test code = MIKEY) pt sent to 2215. printed to lab. 07/26/20 19 18:39 cc7 Lab Interpretation (test code = 53726-2) Abnormal [facility] MethodistLipid [id number] 19:14:37* Test Item Value Reference Range Interpretation Comments Cholesterol (test code = 2093-3) 202 mg/dL 0-199 H Triglycerides (test code = 2571-8) 263 mg/dL 0-149 H HDL cholesterol (test code = 2085-9) 29 mg/dL 40-9999 L LDL cholesterol (test code = 2089-1) 148 mg/dL 0-99 H Result obtained by direct LDL measurement Lipid panel interpretation (test code = 14677-6) See below Total Cholesterol (mg/dL) LDL Cholesterol (mg/dL) <200 Desirable <100 Optimal 200-239 Borderline-high 100-129 Near or above optimal >=240 High 130-159 Borderline- high 160-189 High >=190 Very highHDL Cholesterol (mg/dL) Triglycerides (mg/dL) <40 Low <150 Normal >=60 High 150-199 Borderline-high 200-499 High >=500 Very high Risk Catergories that modify LDL goals.Risk Catergories LDL goal (mg/dL)CHD and CHD risk equivalent <100 (10-year risk >20%)Multiple (2+) risk factors <130 (10-year risk =<20%)0-1 risk factors <160 (<10-year risk) Defining levels of lipids in metabolic syndromeTriglycerides >=150 mg/dLHDL Cholesterol Men <40 mg/dL Women <50 mg/dL Non-HDL cholesterol is a second target for therapy in personswith high triglycerides (>=200 mg/dL) MIKEY (test code = MIKEY) pt sent to 2215. printed to lab. 07/26/20 19 18:39 cc7 Lab Interpretation (test code = 62741-9) Abnormal [facility] MethodistCT Abdomen Pelvis Wo [id number] 18:20:50Hm Interface, Radiology Results 07/26/2019 6:23 PM CSTEXAMINATION: CT ABDOMEN PELVIS WO CONTRASTCLINICAL HISTORY: pelvic painTECHNIQUE: Multiple axial images of the abdomen and pelvis were obtained without intravenous administration of iodinated contrast. Sagittal and coronal computerized reformatted images were also obtained. The lack of intravenous contrast reduces the sensitivity of detecting solid organ disease.CT imaging was performed with iterative reconst ruction techniques and/or automated exposure control to reduce radiation dose.CO MPARISON: None.FINDINGS:1.There is mild focal fatty infiltration of the liver a djacent to the falciform ligament.2.The gallbladder is absent.3.The spleen, panc reas, and adrenals are normal.4.The kidneys, ureters and urinary bladder are nor mal, there is no hydronephrosis or nephrolithiasis. A punctate phlebolith adjace nt to the right ureter (image 158) and punctate left pelvic phleboliths (image 1 60, 179) are noted.5.Uterus and adnexa are unremarkable, see accompanying pelvic ultrasound.6.The stomach, small bowel, colon, and appendix are normal.7.No fluid collection, inflammatory change, lymphadenopathy is seen.8.There is no skeletal abnormality.IMPRESSION:No acute abnormality. No clear explanation for pelvic p ain on this examination.[facility]-[id number] MethodistUS Pelvic Transvaginal 2019-07-26 14:07:00Hm Interface, Radiology Results 07/26/2019 2:10 PM CSTEXAMINATION: US PELVIC TRANSVAGINAL, US PELVIC TRANSABDOMINALCLINICAL HISTORY: pelvic painCOMPARISON: None.TECHNIQUE:Transabdominal and endovaginal sonographic images of the pelvis were obtained. Grayscale, color Doppler, and spectral waveform analysis of the ovarian vessels was performed.FINDINGS:The uterus measures 7.5 x 5.1 x 5.9 cm. The endometrial stripe measures 0.98 cm. The right ovary measures 3.06 cm x 1.89 cm x 1.81 cm . Normal Doppler flow was present.The left ovary measures 2.63 cm x 1.14 cm x 1.14 cm. Normal Doppler flow was present.TRANSVAGINAL IMAGING: The uterine endometrium is not enlarged. There is a 2.6 cm uterine fibroid seen posteriorly.The left and right ovaries are identified. Blood flow is present to both ovaries. There are no adnexal masses present. IMPRESSION:1. The uterine endometrium is not enlarged.2. There is a 2.6 cm uterine fibroid present.3. The ovaries are unremarkable. There is no evidence of any torsion.4. There are no adnexal masses.[facility]-[id number] MethodistUS Pelvic [id number] 14:07:00Hm Interface, Radiology Results 07/26/2019 2:10 PM CSTEXAMINATION: US PELVIC TRANSVAGINAL, US PELVIC TRANSABDOMINALCLINICAL HISTORY: pelvic painCOMPARISON: None.TECHNIQUE:Transabdominal and endovaginal sonographic images of the pelvis were obtained. Grayscale, color Doppler, and spectral waveform analysis of the ovarian vessels was performed.FINDINGS:The uterus measures 7.5 x 5.1 x 5.9 cm. The endometrial stripe measures 0.98 cm. The right ovary measures 3.06 cm x 1.89 cm x 1.81 cm . Normal Doppler flow was present.The left ovary measures 2.63 cm x 1.14 cm x 1.14 cm. Normal Doppler flow was present.TRANSVAGINAL IMAGING: The uterine endometrium is not enlarged. There is a 2.6 cm uterine fibroid seen posteriorly.The left and right ovaries are identified. Blood flow is present to both ovaries. There are no adnexal masses present. IMPRESSION:1. The uterine endometrium is not enlarged.2. There is a 2.6 cm uterine fibroid present.3. The ovaries are unremarkable. There is no evidence of any torsion.4. There are no adnexal masses.[facility]-[id number] MethodistB natriuretic [id number] 20:32:05* Test Item Value Reference Range Interpretation Comments BNP (test code = 32149-8) 6 pg/mL 0-100 [facility] MethodistURINE [id number] 08:15:00* Test Item Value Reference Range Interpretation Comments CULTURE (BEAKER) (test code = 1095) A 30-39,000 col/mL Shannon tropicalis >100,000 col/mL skin floraURINALYSIS W/ [id number] 19:51:00* Test Item Value Reference Range Interpretation Comments COLOR (BEAKER) (test code = 470) Yellow CLARITY (BEAKER) (test code = 469) Hazy SPECIFIC GRAVITY UA (BEAKER) (test code = 468) 1.016 1.001-1 .035 PH UA (BEAKER) (test code = 467) 6.0 5.0-8.0 PROTEIN UA (BEAKER) (test code = 464) Negative Negative GLUCOSE UA (BEAKER) (test code = 365) Negative Negative KETONES UA (BEAKER) (test code = 371) Negative Negative BILIRUBIN UA (BEAKER) (test code = 462) Negative Negative BLOOD UA (BEAKER) (test code = 461) Negative Negative NITRITE UA (BEAKER) (test code = 465) Negative Negative LEUKOCYTE ESTERASE UA (BEAKER) (test code = 466) Negative Negat claudia UROBILINOGEN UA (BEAKER) (test code = 463) < mg/dL 0.2-1.0 RBC UA (BEAKER) (test code = 519) 3 /HPF WBC UA (BEAKER) (test code = 520) 2 /HPF MUCUS (BEAKER) (test code = 1574) Moderate SQUAMOUS EPITHELIAL (BEAKER) (test code = 516) 6 /HPF SOURCE(BEAKER) (test code = 2795) TROPONIN [id number] 05:03:00* Test Item Value Reference Range Interpretation Comments TROPONIN I (BEAKER) (test code = 397) < ng/mL 0.00-0.15 Troponin I (TnI) levels must be interpreted in the context of the presenting sym ptoms and the clinical findings. Elevated TnI levels indicate myocardial damage, but are not specific for ischemic heart disease. Elevated TnI levels are seen in patients with other cardiac conditions (including myocarditis and congestive h eart failure), and slight TnI elevations occur in patients with other conditions , including sepsis, renal failure, acidosis, acute neurological disease, and per sistent tachyarrhythmia.CBC W/PLT COUNT & AUTO [id number] 04:38:00* Test Item Value Reference Range Interpretation Comments WHITE BLOOD CELL COUNT (BEAKER) (test code = 775) 8.1 K/ L 4.0- 10.0 RED BLOOD CELL COUNT (BEAKER) (test code = 761) 4.86 M/ L 4.00-5 .00 HEMOGLOBIN (BEAKER) (test code = 410) 10.7 GM/DL 12.0-15.0 L HEMATOCRIT (BEAKER) (test code = 411) 34.9 % 36.0-45.0 L MEAN CORPUSCULAR VOLUME (BEAKER) (test code = 753) 71.9 fL 82. 0-99.0 L MEAN CORPUSCULAR HEMOGLOBIN (BEAKER) (test code = 751) 22.1 pg 27.0-33.0 L MEAN CORPUSCULAR HEMOGLOBIN CONC (BEAKER) (test code = 752) 30.7 GM/DL 32.0-36.0 L RED CELL DISTRIBUTION WIDTH (BEAKER) (test code = 412) 19.5 % 12.0-15.0 H PLATELET COUNT (BEAKER) (test code = 756) 271 K/CU MM 150-430 MEAN PLATELET VOLUME (BEAKER) (test code = 754) 9.1 fL 6.5-10 .5 NUCLEATED RED BLOOD CELLS (BEAKER) (test code = 413) 0 /100 WBC 0 -0 NEUTROPHILS RELATIVE PERCENT (BEAKER) (test code = 429) 63 % LYMPHOCYTES RELATIVE PERCENT (BEAKER) (test code = 430) 30 % MONOCYTES RELATIVE PERCENT (BEAKER) (test code = 431) 6 % EOSINOPHILS RELATIVE PERCENT (BEAKER) (test code = 432) 1 % BASOPHILS RELATIVE PERCENT (BEAKER) (test code = 437) 1 % NEUTROPHILS ABSOLUTE COUNT (BEAKER) (test code = 670) 5.10 K/ L 1.80-8.00 LYMPHOCYTES ABSOLUTE COUNT (BEAKER) (test code = 414) 2.40 K/ L 1.48-4.50 MONOCYTES ABSOLUTE COUNT (BEAKER) (test code = 415) 0.50 K/ L 0. 00-1.30 EOSINOPHILS ABSOLUTE COUNT (BEAKER) (test code = 416) 0.10 K/ L 0.00-0.50 BASOPHILS ABSOLUTE COUNT (BEAKER) (test code = 417) 0.00 K/ L 0. 00-0.20 CREATINE KINASE (CK), TOTAL AND [id number] 23:56:00* Test Item Value Reference Range Interpretation Comments CREATINE KINASE TOTAL (BEAKER) (test code = 380) 26 U/L 29-16 8 L CREATINE KINASE-MB (BEAKER) (test code = 750) 0.2 ng/mL 0.0-4.9 CREATINE KINASE-MB INDEX (BEAKER) (test code = 395) 0.8 % CK-MB Reference Range:<5 Normal5-10 Borderline>10 AbnormalTROPONIN I 2017-01-16 23:56:00* Test Item Value Reference Range Interpretation Comments TROPONIN I (BEAKER) (test code = 397) < ng/mL 0.00-0.15 Troponin I (TnI) levels must be interpreted in the context of the presenting sym ptoms and the clinical findings. Elevated TnI levels indicate myocardial damage, but are not specific for ischemic heart disease. Elevated TnI levels are seen in patients with other cardiac conditions (including myocarditis and congestive h eart failure), and slight TnI elevations occur in patients with other conditions , including sepsis, renal failure, acidosis, acute neurological disease, and per sistent tachyarrhythmia.CREATINE KINASE (CK), TOTAL AND [id number] 18:44:00* Test Item Value Reference Range Interpretation Comments CREATINE KINASE TOTAL (BEAKER) (test code = 380) 29 U/L 29-16 8 CREATINE KINASE-MB (BEAKER) (test code = 750) 0.2 ng/mL 0.0-4.9 CREATINE KINASE-MB INDEX (BEAKER) (test code = 395) 0.7 % CK-MB Reference Range:<5 Normal5-10 Borderline>10 AbnormalTROPONIN I 2017-01-16 18:44:00* Test Item Value Reference Range Interpretation Comments TROPONIN I (BEAKER) (test code = 397) < ng/mL 0.00-0.15 Troponin I (TnI) levels must be interpreted in the context of the presenting sym ptoms and the clinical findings. Elevated TnI levels indicate myocardial damage, but are not specific for ischemic heart disease. Elevated TnI levels are seen in patients with other cardiac conditions (including myocarditis and congestive h eart failure), and slight TnI elevations occur in patients with other conditions , including sepsis, renal failure, acidosis, acute neurological disease, and per sistent tachyarrhythmia.CREATINE KINASE (CK), TOTAL AND [id number] 16:23:00* Test Item Value Reference Range Interpretation Comments CREATINE KINASE TOTAL (BEAKER) (test code = 380) 27 U/L 29-16 8 L CREATINE KINASE-MB (BEAKER) (test code = 750) 0.1 ng/mL 0.0-4.9 CREATINE KINASE-MB INDEX (BEAKER) (test code = 395) 0.4 % Unable to Calculate CK-MB Reference Range:<5 Normal5-10 Borderline>10 AbnormalTROPONIN I 2017-01-16 16:23:00* Test Item Value Reference Range Interpretation Comments TROPONIN I (BEAKER) (test code = 397) < ng/mL 0.00-0.15 Troponin I (TnI) levels must be interpreted in the context of the presenting sym ptoms and the clinical findings. Elevated TnI levels indicate myocardial damage, but are not specific for ischemic heart disease. Elevated TnI levels are seen in patients with other cardiac conditions (including myocarditis and congestive h eart failure), and slight TnI elevations occur in patients with other conditions , including sepsis, renal failure, acidosis, acute neurological disease, and per sistent tachyarrhythmia.ACETAMINOPHEN [id number] 13:33:00* Test Item Value Reference Range Interpretation Comments ACETAMINOPHEN LEVEL (BEAKER) (test code = 344) < ug/mL 10.0-30 .0 L COMPREHENSIVE METABOLIC [id number] 13:30:00* Test Item Value Reference Range Interpretation Comments TOTAL PROTEIN (BEAKER) (test code = 770) 7.1 gm/dL 6.0-8.5 Specimen slightly hemolyzed ALBUMIN (BEAKER) (test code = 1145) 3.8 g/dL 3.5-5.0 Specimen slightly hemolyzed ALKALINE PHOSPHATASE (BEAKER) (test code = 346) 57 U/L 30-115 BILIRUBIN TOTAL (BEAKER) (test code = 377) 0.5 mg/dL 0.1-1.3 Specimen slightly hemolyzed SODIUM (BEAKER) (test code = 381) 142 meq/L 135-148 POTASSIUM (BEAKER) (test code = 379) 4.3 meq/L 3.5-5.5 Specimen slightly hemolyzed CHLORIDE (BEAKER) (test code = 382) 110 meq/L 98-106 H CO2 (BEAKER) (test code = 355) 22 meq/L 20-31 BLOOD UREA NITROGEN (BEAKER) (test code = 354) 8 mg/dL 10-26 L CREATININE (BEAKER) (test code = 358) 0.79 mg/dL 0.50-1.20 Specimen slightly hemolyzed GLUCOSE RANDOM (BEAKER) (test code = 652) 89 mg/dL 70-110 CALCIUM (BEAKER) (test code = 697) 9.3 mg/dL 8.5-10.5 AST (SGOT) (BEAKER) (test code = 353) 20 U/L 5-40 Specimen slightly hemolyzed ALT (SGPT) (BEAKER) (test code = 347) 22 U/L 6-50 Specimen slightly hemolyzed EGFR (BEAKER) (test code = 1092) 82 mL/min/1.73 sq m ESTIMATED GFR IS NOT ACCURATE CREATININE CLEARANCE IN PREDICTING GLOMERULAR FILTRATION RATE. ESTIMATED GFR IS NOT APPLICABLE FOR DIALYSIS PATIENTS. CREATINE KINASE (CK)2017-01-16 13:30:00* Test Item Value Reference Range Interpretation Comments CREATINE KINASE TOTAL (BEAKER) (test code = 380) 29 U/L 29-16 8 SALICYLATE [id number] 13:27:00* Test Item Value Reference Range Interpretation Comments SALICYLATE LEVEL (BEAKER) (test code = 764) < mg/dL 20.0-30.0 L [id number] 13:27:00* Test Item Value Reference Range Interpretation Comments ETHANOL (BEAKER) (test code = 400) < mg/dL <=10 CBC W/PLT COUNT & AUTO [id number] 13:07:00* Test Item Value Reference Range Interpretation Comments WHITE BLOOD CELL COUNT (BEAKER) (test code = 775) 10.0 K/ L 4.0- 10.0 RED BLOOD CELL COUNT (BEAKER) (test code = 761) 5.50 M/ L 4.00-5 .00 H HEMOGLOBIN (BEAKER) (test code = 410) 12.2 GM/DL 12.0-15.0 HEMATOCRIT (BEAKER) (test code = 411) 39.4 % 36.0-45.0 MEAN CORPUSCULAR VOLUME (BEAKER) (test code = 753) 71.6 fL 82. 0-99.0 L MEAN CORPUSCULAR HEMOGLOBIN (BEAKER) (test code = 751) 22.1 pg 27.0-33.0 L MEAN CORPUSCULAR HEMOGLOBIN CONC (BEAKER) (test code = 752) 30.9 GM/DL 32.0-36.0 L RED CELL DISTRIBUTION WIDTH (BEAKER) (test code = 412) 19.7 % 12.0-15.0 H PLATELET COUNT (BEAKER) (test code = 756) 332 K/CU MM 150-430 MEAN PLATELET VOLUME (BEAKER) (test code = 754) 9.9 fL 6.5-10 .5 NUCLEATED RED BLOOD CELLS (BEAKER) (test code = 413) 0 /100 WBC 0 -0 NEUTROPHILS RELATIVE PERCENT (BEAKER) (test code = 429) 74 % LYMPHOCYTES RELATIVE PERCENT (BEAKER) (test code = 430) 21 % MONOCYTES RELATIVE PERCENT (BEAKER) (test code = 431) 5 % EOSINOPHILS RELATIVE PERCENT (BEAKER) (test code = 432) 0 % BASOPHILS RELATIVE PERCENT (BEAKER) (test code = 437) 1 % NEUTROPHILS ABSOLUTE COUNT (BEAKER) (test code = 670) 7.40 K/ L 1.80-8.00 LYMPHOCYTES ABSOLUTE COUNT (BEAKER) (test code = 414) 2.10 K/ L 1.48-4.50 MONOCYTES ABSOLUTE COUNT (BEAKER) (test code = 415) 0.40 K/ L 0. 00-1.30 EOSINOPHILS ABSOLUTE COUNT (BEAKER) (test code = 416) 0.00 K/ L 0.00-0.50 BASOPHILS ABSOLUTE COUNT (BEAKER) (test code = 417) 0.10 K/ L 0. 00-0.20 RAPID DRUG SCREEN, [id number] 12:24:00* Test Item Value Reference Range Interpretation Comments BARBITURATE URINE (BEAKER) (test code = 725) Negative Negative BENZODIAZEPINE SCREEN URINE (BEAKER) (test code = 726) Positive Negative A COCAINE (METAB.) SCREEN (BEAKER) (test code = 1164) Negative Ne gative METHADONE SCREEN (BEAKER) (test code = 1436) Negative Negative OPIATE SCREEN URINE (BEAKER) (test code = 734) Negative Negativ e CANNABINOID SCREEN URINE (BEAKER) (test code = 727) Negative Ne gative AMPH/METHAMPH SCREEN (BEAKER) (test code = 1438) Negative Negat claudia PHENCYCLIDINE SCREEN URINE (BEAKER) (test code = 608) Negative Negative DRUG CUTOFF CONC.Cocaine 300 ng/mL Cannabinoid 50 ng/mLBenzodiazepine 200 ng/mLBarbiturate 200 ng/mLPh encyclidine 25 ng/mLOpiate 300 ng/mLMethadone 300 ng/mLAmphetamine/ 1000 ng/mL MethamphetamineURINALYSIS W/ [id number] 12:17:00* Test Item Value Reference Range Interpretation Comments COLOR (BEAKER) (test code = 470) Yellow CLARITY (BEAKER) (test code = 469) Cloudy SPECIFIC GRAVITY UA (BEAKER) (test code = 468) 1.019 1.001-1 .035 PH UA (BEAKER) (test code = 467) 5.0 5.0-8.0 PROTEIN UA (BEAKER) (test code = 464) Negative Negative GLUCOSE UA (BEAKER) (test code = 365) Negative Negative KETONES UA (BEAKER) (test code = 371) 20 mg/dL Negative A BILIRUBIN UA (BEAKER) (test code = 462) Negative Negative BLOOD UA (BEAKER) (test code = 461) Negative Negative NITRITE UA (BEAKER) (test code = 465) Negative Negative LEUKOCYTE ESTERASE UA (BEAKER) (test code = 466) Negative Negat claudia UROBILINOGEN UA (BEAKER) (test code = 463) < mg/dL 0.2-1.0 RBC UA (BEAKER) (test code = 519) 2 /HPF WBC UA (BEAKER) (test code = 520) 4 /HPF BACTERIA (BEAKER) (test code = 517) Occasional MUCUS (BEAKER) (test code = 1574) Many SQUAMOUS EPITHELIAL (BEAKER) (test code = 516) 16 /HPF SOURCE(BEAKER) (test code = 2795) SCREEN, [id number] 12:14:00* Test Item Value Reference Range Interpretation Comments TEST URINE (BEAKER) (test code = 583) Negative
[2020-06-18 18:56] LABS: BASOPHILS # (AUTO) 0.1 (0.0-0.1); BASOPHILS % 0.6 % (0.0-1.0); EOSINOPHILS # (AUTO) 0.1 (0.0-0.4); HEMATOCRIT 42.4 % (34.2-44.1); HEMOGLOBIN 13.2 g/dL (12.0-16.0); LYMPHOCYTES # (AUTO) 2.9 (1.0-3.2); LYMPHOCYTES % 28.2 % (18.0-39.1); MEAN CORPUSCULAR HEMOGLOBIN 27.1 pg (28-32); MEAN CORPUSCULAR HGB CONC 31.1 g/dL (31-35); MEAN CORPUSCULAR VOLUME 87.1 fL (81-99); MONOCYTES # (AUTO) 0.5 (0.2-0.8); MONOCYTES % 4.8 % (4.4-11.3); NEUTROPHILS # (AUTO) 6.8 (2.1-6.9); NEUTROPHILS % 64.5 % (38.7-80.0); PLATELET COUNT 364 x10e3/uL (140-360); RED BLOOD COUNT 4.87 x10e6/uL (3.6-5.1)
[2020-06-18 19:12] LABS: ALANINE AMINOTRANSFERASE 15 IU/L (0-55); ALBUMIN 3.3 g/dL (3.5-5.0); ALBUMIN/GLOBULIN RATIO 0.9 (0.8-2.0); ALKALINE PHOSPHATASE 71 IU/L (40-150); ANION GAP 14.3 mmol/L (8-16); BLOOD UREA NITROGEN 12 mg/dL (7-26); BUN/CREATININE RATIO 18 (6-25); CARBON DIOXIDE 23 mmol/L (22-29); CHLORIDE 106 mmol/L (98-107); CREATININE, SERUM 0.66 mg/dL (0.57-1.11); EST GLOMERULAR FILTRATION RATE > 60 ML/MIN (60-); GLUCOSE 93 mg/dL (74-118); POTASSIUM 4.3 mmol/L (3.5-5.1); SODIUM 139 mmol/L (136-145)
--- NOTE | 2020-06-18 19:15 | Emergency Department Note ---
History of Present Illnes History of Present Illness Chief Complaint: Genitourinary History of Present Illness This is a 39 year old female Chief Complaint Comment Patient in from home with complaints of pelvic pain and abnormal vaginal bleeding with clots after going for 2 months without a menstrual cycle. Patient reports that they heavy bleeding and clots started yesterday. Patient reports a history of uterine prolapse and was supposed to have a hysterectomy in 2019 but it was cancelled. Patient also reports a history of anemia. Patient reports that she is saturating a pad about every hour. Historian: Patient Arrival Mode: Car Theoretical Physicist Required: No Onset (how long ago): month(s) Location: Vagina Quality: Bleeding Radiation: Reports non-radiation Severity: moderate Onset quality: gradual Duration (how long): month(s) Timing of current episode: constant Progression: unchanged Chronicity: chronic Context: Denies recent illness, Denies recent surgery Relieving factors: none Exacerbating factors: none Associated symptoms: Reports denies other symptoms Treatments prior to arrival: none Past Medical/Family History Physician Review I have reviewed the patient's past medical and family history. Any updates have been documented here. Past Medical History Recent Fever: No Clinical Suspicion of Infectio: No New/Unexplained Change in Ment: No Past Medical History: Anxiety, Depression, Other Mental Illness Other Medical History: bipolar PTSD Past Surgical History: Cholecysctectomy, Tubal Ligation, Other Last Tetanus: 2019 Review of Systems Review of Systems Constitutional: Reports as per HPI EENTM: Reports no symptoms Cardiovascular: Reports no symptoms Respiratory: Reports no symptoms Gastrointestinal: Reports no symptoms Genitourinary: Reports as per HPI Musculoskeletal: Reports no symptoms Integumentary: Reports no symptoms Neurological: Reports no symptoms Psychological: Reports no symptoms Endocrine: Reports no symptoms Hematological/Lymphatic: Reports no symptoms Physical Exam Related Data Allergies: Coded Allergies: No Known Allergies (Unverified , 09/05/19) Triage Vital Signs Vital Signs Date Time Temp Pulse Resp B/P (MAP) Pulse Ox O2 Delivery O2 Flow Rate FiO2 06/18/20 18:02 97.8 90 18 135/81 98 Room Air Vital signs reviewed: Yes Physical Exam CONSTITUTIONAL Constitutional: Present well-developed, Present well-nourished HENT HENT: Present normocephalic, Present atraumatic, Present oropharynx clear/moist, Present nose normal HENT L/R: Present left ext ear normal, Present right ext ear normal EYES Eyes: Reports PERRL, Reports conjunctivae normal NECK Neck: Present ROM normal PULMONARY Pulmonary: Present effort normal, Present breath sounds normal CARDIOVASCULAR Cardiovascular: Present regular rhythm, Present heart sounds normal, Present capillary refill normal, Present normal rate GASTROINTESTINAL Abdominal: Present soft, Present nontender, Present bowel sounds normal GENITOURINARY Genitourinary: Present exam deferred SKIN Skin: Present warm, Present dry MUSCULOSKELETAL Musculoskeletal: Present ROM normal NEUROLOGICAL Neurological: Present alert, Present oriented x 3, Present no gross motor or sensory deficits PSYCHOLOGICAL Psychological: Present mood/affect normal, Present judgement normal Results Laboratory Laboratory Laboratory Tests Test 06/18/20 18:17 Human Chorionic Gonadotropin, Qual Negative (NEGATIVE) Lab results reviewed: Yes Assessment & Plan Medical Decision Making MDM 39 y.o F presents for vaginal bleeding. Pelvic exam deferred at patient request. She has an OBGYN follow up. Symptoms ongoing for months off and on. No anemia noted. Doubt emergent process and she is appropriate for DC. Likely menopausal bleeding. Assessment & Plan Final Impression: (1) Abnormal vaginal bleeding Depart Disposition: HOME, SELF-CARE Last Vital Signs Date Time Temp Pulse Resp B/P (MAP) Pulse Ox O2 Delivery O2 Flow Rate FiO2 06/18/20 18:02 97.8 90 18 135/81 98 Room Air RACHEL OCONNELL MD Jun 18, 2020 19:15
[2020-06-18 19:29] LABS: INR 0.82; PROTHROMBIN TIME 11.7 seconds (11.9-14.5)
[2020-06-18 19:30] LABS: PARTIAL THROMBOPLASTIN TIME 34.1 seconds (23.8-35.5)
== END 2020-06-18 20:50 | disposition home or self-care (01) ==
LOC: ER 18:20
DX: N93.8 Other specified abnormal uterine and vaginal bleeding (principal); F31.9 Bipolar disorder, unspecified; F43.10 Post-traumatic stress disorder, unspecified; F41.9 Anxiety disorder, unspecified
CPT/HCPCS: 36415; 80053; 84702; 85025; 85610; 85730; 99283

== ENCOUNTER → 2023-06-11 | Day surgery (SDC) | payer OTHER ==
[~2023-06-11] MED LIST: BUSPIRONE HCL5 MG PO; LACTATED RINGER'S 1,000 ML ONE; LATUDA20 MG PO; LIDOCAINE HCL 2% LOCAL INJ 5 ML SDV VIAL INJ ONE; MIDAZOLAM HCL 2 MG/2 ML VIAL ONE; MOUNJARO2.5 MG/0.5 SC; PROPOFOL IV EMULSION 10 MG/ML 20 ML VIAL ONE
[2023-06-11 13:27] VITALS: BP 148/88; PULSE 66; RESP 18; O2SAT 99
== END | disposition home or self-care (01) ==
LOC: OR 11:29
PROVIDERS: ATTEND Internal Medicine Gastroenterology
DX: K21.9 Gastro-esophageal reflux disease without esophagitis (principal); K29.70 Gastritis, unspecified, without bleeding; K20.90 Esophagitis, unspecified without bleeding; K44.9 Diaphragmatic hernia without obstruction or gangrene; Z86.010 Personal history of colon polyps; R74.8 Abnormal levels of other serum enzymes; R03.0 Elevated blood-pressure reading, without diagnosis of hypertension; E66.01 Morbid (severe) obesity due to excess calories; M06.9 Rheumatoid arthritis, unspecified; F41.9 Anxiety disorder, unspecified; F32.A Depression, unspecified; F17.290 Nicotine dependence, other tobacco product, uncomplicated; Z79.1 Long term (current) use of non-steroidal anti-inflammatories (NSAID); Z68.43 Body mass index [BMI] 50.0-59.9, adult
CPT/HCPCS: 36415; 43239; 82948; 88112; 88305; 88312; 88342; J2001; J2250; J2704; J7121; 43235